=== PATIENT | female | born 1960 | race Caucasian/White ===

== ENCOUNTER 2021-10-31 01:38 | Inpatient (IN) | payer BC ==
[2021-10-31] MEDS ORDERED: IPRATROPIUM 0.5 MG/2.5 ML NEBU INHALATION STA (01:55)
[2021-10-31] MEDS ORDERED: AZITHROMYCIN 500 MG in SODIUM CHLORIDE 0.9% 250 ML IVPB STA (01:55)
[2021-10-31] MEDS ORDERED: ALBUTEROL NEBULIZED 2.5 MG/3 ML INHALATION STA (01:55)
[2021-10-31] MEDS ORDERED: methylPREDNISolone SOD SUCCI 125 MG/2 ML VIAL IV STA (01:55)
[2021-10-31] MEDS ORDERED: SODIUM CHLORIDE 0.9% 1,000 ML IV STA ×2 (01:55)
[2021-10-31] MEDS ORDERED: MORPHINE SULFATE 2 MG/ML SYRINGE IVP STA (01:56)
[2021-10-31] MEDS ORDERED: KETOROLAC 15 MG/ML 1 ML VIAL IVP STA (01:56)
--- NOTE | 2021-10-31 01:56 | ED ---
SOB HPI - General Chief Complaint: Upper Respiratory Infection Stated Complaint: SOB, right side pain Time Seen by Provider: 10/31/21 01:55 Source: patient, RN notes reviewed, old records reviewed Mode of arrival: ambulatory - History of Present Illness Initial Comments: This is a 61-year-old female to the emergency department for evaluation of shortness of breath. Patient has show significant shortness of breath cough and congestion positive increasing cough and generalized chest pain. Patient denies fever. Patient was seen in outpatient setting earlier today tested negative for coronavirus. No travel history no known sick contacts MD Complaint: shortness of breath -: hour(s) Severity: severe Severity scale (1-10): 10 Quality: aching Consistency: constant Improves With: nothing Worsens With: exertion, movement Known History Of: COPD, asthma - Related Data Home Medications Medication Instructions Recorded Confirmed Albuterol Sulfate [Proair Hfa] 2 puff INHALATION Q6HR PRN 09/20/13 09/20/13 Fexofenadine/Pseudoephedrine 1 each PO BID 09/20/13 09/26/13 [Shannan-D 12 Hour Tablet] Tudorza 1 puff INHALATION BID 09/20/13 09/26/13 Previous Rx's Medication Instructions Recorded Acetaminophen-Codeine 300-30mg 2 each PO Q6HR PRN #20 tab 09/27/13 [Tylenol w/codeine #3] Ibuprofen [Motrin] 600 mg PO Q6HR PRN #30 tab 09/27/13 Sennosides-Docusate Sodium 2 each PO BID PRN #60 tab 09/27/13 [Senokot-S] Allergies Allergy/AdvReac Type Severity Reaction Status Date / Time Penicillins Allergy Nausea & Verified 09/26/13 14:45 Vomiting & Diarrhea Review of Systems ROS Statement: Those systems with pertinent positive or pertinent negative responses have been documented in the HPI. ROS Other: All systems not noted in ROS Statement are negative. 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 Absent: scleral icterus, conjunctival injection, periorbital swelling ENT exam: Present: normal exam, mucous membranes moist Neck exam: Present: normal inspection. Absent: tenderness, meningismus, lymphadenopathy Respiratory exam: Present: respiratory distress, accessory muscle use, decreased breath sounds, prolonged expiratory. Absent: wheezes, rales, rhonchi, stridor Cardiovascular Exam: Present: regular rate, normal rhythm, tachycardia, normal heart sounds. Absent: systolic murmur, diastolic murmur, rubs, gallop, clicks GI/Abdominal exam: Present: soft, normal bowel sounds. Absent: distended, tenderness, guarding, rebound, rigid Extremities exam: Present: normal inspection, full ROM, normal capillary refill. Absent: tenderness, pedal edema, joint swelling, calf tenderness Back exam: Present: normal inspection Neurological exam: Present: alert, oriented X3, CN II-XII intact Psychiatric exam: Present: normal affect, normal mood Skin exam: Present: warm, dry, intact, normal color. Absent: rash Course Vital Signs 10/31/21 10/31/21 10/31/21 01:41 02:43 02:57 Temperature 99.7 F H Pulse Rate 111 H 111 H 109 H Respiratory 20 Rate Blood Pressure 134/74 O2 Sat by Pulse 92 L Oximetry - Reevaluation(s) Reevaluation #1: 10/31/21 02:45 Medical record is reviewed Reevaluation #2: 10/31/21 02:45 Patient is showing no real clinical improvement here Reevaluation #3: 10/31/21 03:20 Patient not really improving here in the ER still breathing at a high rate Reevaluation #4: 10/31/21 03:20 Patient informed of results and questions answered - Consultations Consultation #1: Spoke with Dr. Sparks is going to admit this patient Medical Decision Making - Medical Decision Making 61-year-old female in significant respiratory distress. Patient with hypoxia help with supplemental O2. Not on home O2. Patient has history of asthma COPD will admit for pneumonia with COPD exacerbation - Lab Data Result diagrams: 10/31/21 02:15 07/01/22 02:15 Lab Results 10/31/21 10/31/21 10/31/21 Range/Units 02:15 02:15 02:15 WBC 18.1 H (3.8-10.6) k/uL RBC 4.22 (3.80-5.40) m/uL Hgb 13.0 (11.4-16.0) gm/dL Hct 38.8 (34.0-46.0) % MCV 91.8 (80.0-100.0) fL MCH 30.7 (25.0-35.0) pg MCHC 33.4 (31.0-37.0) g/dL RDW 12.9 (11.5-15.5) % Plt Count 195 (150-450) k/uL MPV 6.7 Neutrophils % 91 % Lymphocytes % 5 % Monocytes % 3 % Eosinophils % 0 % Basophils % 0 % Neutrophils # 16.4 H (1.3-7.7) k/uL Lymphocytes # 0.8 L (1.0-4.8) k/uL Monocytes # 0.6 (0-1.0) k/uL Eosinophils # 0.1 (0-0.7) k/uL Basophils # 0.1 (0-0.2) k/uL PT 9.8 (9.0-12.0) sec INR 0.9 (<1.2) APTT 23.3 (22.0-30.0) sec Sodium 127 L (137-145) mmol/L Potassium 4.3 (3.5-5.1) mmol/L Chloride 96 L (98-107) mmol/L Carbon Dioxide 22 (22-30) mmol/L Anion Gap 9 mmol/L BUN 11 (7-17) mg/dL Creatinine 0.69 (0.52-1.04) mg/dL Est GFR (CKD-EPI)AfAm >90 (>60 ml/min/1.73 sqM) Est GFR (CKD-EPI)NonAf >90 (>60 ml/min/1.73 sqM) Glucose 139 H (74-99) mg/dL Calcium 8.6 (8.4-10.2) mg/dL Magnesium 2.0 (1.6-2.3) mg/dL Total Bilirubin 0.8 (0.2-1.3) mg/dL AST 25 (14-36) U/L ALT 16 (4-34) U/L Alkaline Phosphatase 99 (38-126) U/L Troponin I (0.000-0.034) ng/mL NT-Pro-B Natriuret Pep pg/mL Total Protein 6.7 (6.3-8.2) g/dL Albumin 3.9 (3.5-5.0) g/dL 10/31/21 10/31/21 Range/Units 02:15 02:15 WBC (3.8-10.6) k/uL RBC (3.80-5.40) m/uL Hgb (11.4-16.0) gm/dL Hct (34.0-46.0) % MCV (80.0-100.0) fL MCH (25.0-35.0) pg MCHC (31.0-37.0) g/dL RDW (11.5-15.5) % Plt Count (150-450) k/uL MPV Neutrophils % % Lymphocytes % % Monocytes % % Eosinophils % % Basophils % % Neutrophils # (1.3-7.7) k/uL Lymphocytes # (1.0-4.8) k/uL Monocytes # (0-1.0) k/uL Eosinophils # (0-0.7) k/uL Basophils # (0-0.2) k/uL PT (9.0-12.0) sec INR (<1.2) APTT (22.0-30.0) sec Sodium (137-145) mmol/L Potassium (3.5-5.1) mmol/L Chloride (98-107) mmol/L Carbon Dioxide (22-30) mmol/L Anion Gap mmol/L BUN (7-17) mg/dL Creatinine (0.52-1.04) mg/dL Est GFR (CKD-EPI)AfAm (>60 ml/min/1.73 sqM) Est GFR (CKD-EPI)NonAf (>60 ml/min/1.73 sqM) Glucose (74-99) mg/dL Calcium (8.4-10.2) mg/dL Magnesium (1.6-2.3) mg/dL Total Bilirubin (0.2-1.3) mg/dL AST (14-36) U/L ALT (4-34) U/L Alkaline Phosphatase (38-126) U/L Troponin I <0.012 (0.000-0.034) ng/mL NT-Pro-B Natriuret Pep 146 pg/mL Total Protein (6.3-8.2) g/dL Albumin (3.5-5.0) g/dL - Radiology Data Radiology results: report reviewed (Chest x-rays positive for pneumonia), image reviewed Critical Care Time Critical Care Time: Yes Total Critical Care Time: 31 Disposition Clinical Impression: Asthma exacerbation, COPD (chronic obstructive pulmonary disease), Hypoxia, Community acquired pneumonia Disposition: ADMITTED IP TO THIS [facility] Condition: Serious Is patient prescribed a controlled substance at d/c from ED?: No Referrals: Wilman Sparks DO [Primary Care Provider] - 1-2 days
[2021-10-31 02:38] LABS: Basophils # (A) 0.1 k/uL (0-0.2); Basophils % (A) 0 %; Eosinophils # (A) 0.1 k/uL (0-0.7); Eosinophils % (A) 0 %; HCT 38.8 % (34.0-46.0); Lymphocytes # (A) 0.8 k/uL (1.0-4.8); Lymphocytes % (A) 5 %; MCH 30.7 pg (25.0-35.0); MCHC 33.4 g/dL (31.0-37.0); MCV 91.8 fL (80.0-100.0); Mean Platelet Volume 6.7; Monocytes # (A) 0.6 k/uL (0-1.0); Monocytes % (A) 3 %; Neutrophils # (A) 16.4 k/uL (1.3-7.7); Neutrophils % (A) 91 %; Platelet Count 195 k/uL (150-450); RBC 4.22 m/uL (3.80-5.40); RDW 12.9 % (11.5-15.5); WBC 18.1 k/uL (3.8-10.6)
--- NOTE | 2021-10-31 02:40 | XR ---
EXAM: XR Chest, 1 View CLINICAL HISTORY: ITS.REASON XR Reason: sob TECHNIQUE: Frontal view of the chest. COMPARISON: No relevant prior studies available. FINDINGS/IMPRESSION: Patchy opacities in the right midlung field and left lower lung field, concerning for infiltrates. Follow-up 2 view CXR recommended. Small effusion. No pneumothorax. Cardiomegaly.
[2021-10-31 02:53] LABS: ALT 16 U/L (4-34); AST 25 U/L (14-36); African American GFR (CKD) >90 (>60 ml/min/1.73 sqM); Albumin 3.9 g/dL (3.5-5.0); Alkaline Phosphatase 99 U/L (38-126); Anion Gap 9 mmol/L; Blood Urea Nitrogen 11 mg/dL (7-17); Calcium 8.6 mg/dL (8.4-10.2); Carbon Dioxide 22 mmol/L (22-30); Chloride 96 mmol/L (98-107); Glucose 139 mg/dL (74-99); Non-African American GFR(CKD) >90 (>60 ml/min/1.73 sqM); Potassium 4.3 mmol/L (3.5-5.1); Sodium 127 mmol/L (137-145); Total Bilirubin 0.8 mg/dL (0.2-1.3); Total Protein 6.7 g/dL (6.3-8.2)
[2021-10-31 03:08] LABS: INR 0.9 (<1.2); Partial Thromboplastin Time 23.3 sec (22.0-30.0); Prothrombin Time 9.8 sec (9.0-12.0)
[2021-10-31] MEDS ORDERED: PNEUMONIA PROTOCOL UTILIZED 1 EACH MISC PO PRN (03:15)
[2021-10-31] MEDS: IPRATROPIUM-ALBUTEROL 3 ML NEB INHALATION PRN ×2 (07:00→10:55)
[2021-10-31] MEDS: methylPREDNISolone SOD SUCCI 40 MG/ML 1 ML VIAL IV SCH ×2 (12:21→18:07)
--- NOTE | 2021-10-31 13:21 | P.CNPUL ---
History of Present Illness Consult date: 10/31/21 Reason for consult: dyspnea, asthma, pneumonia History of present illness: This is a 61-year-old female patient, an occasional smoker, who comes into the hospital because of worsening shortness of breath and cough and congestion is been going on for the past 1-2 weeks. The patient has been having increased cough and congestion and generalized weakness and fatigue and tiredness. Denies having any fever. She was seen on outpatient basis and she tested negative for COVID 19. No travel history. No sick contacts. The patient has been vacc inated for, 19. During this current admission, the patient a chest x-ray that showed multilobar pneumonia. The chest x-ray showed patchy opacities in the right upper lobe and midlung. The left lower lobe consistent with pneumonia. The blood work showed a white cell count of 18.4 with hemoglobin 13.0 and a platelet count of 195. Normal coagulation profile. Sodium level was 127 with a potassium level of 4.3 BUN is 11 creatinine of 0.9. COVID 19 testing was also negative. Troponin was also negative at 0.01. Total protein was 6.7, albumin was 3.9. The patient was admitted to the hospital and started on a combination of Rocephin and Zithromax. Note that the patient has history of bronchial asthma and the patient has been maintained on tudorza inhaler on outpatient basis. She is also on Singulair 10 mg by mouth daily she has a nebulizer which she got DuoNeb nebulized treatment [id number]. She also uses pro-air rescue inhaler on an as-needed basis. Review of Systems General appearance: alert, in no apparent distress, anxious, in distress Head exam: Present: atraumatic, normocephalic, normal inspection Eye exam: Present: normal appearance, PERRL, EOMI. Absent: scleral icterus, conjunctival injection, periorbital swelling ENT exam: Present: normal exam, mucous membranes moist Neck exam: Present: normal inspection. Absent: tenderness, meningismus, lymphadenopathy Respiratory exam: Present: respiratory distress, accessory muscle use, decreased breath sounds, prolonged expiratory. Absent: wheezes, rales, rhonchi, stridor Cardiovascular Exam: Present: regular rate, normal rhythm, tachycardia, normal heart sounds. Absent: systolic murmur, diastolic murmur, rubs, gallop, clicks GI/Abdominal exam: Present: soft, normal bowel sounds. Absent: distended, tenderness, guarding, rebound, rigid Extremities exam: Present: normal inspection, full ROM, normal capillary refill. Absent: tenderness, pedal edema, joint swelling, calf tenderness Back exam: Present: normal inspection Neurological exam: Present: alert, oriented X3, CN II-XII intact Psychiatric exam: Present: normal affect, normal mood Skin exam: Present: warm, dry, intact, normal color. Absent: rash Constitutional: Reports fatigue, Reports poor appetite, Reports weakness Eyes: denies as per HPI, denies blurred vision, denies bulging eye, denies decreased vision, denies diplopia, denies discharge, denies dry eye, denies irritation, denies itching, denies pain, denies photophobia, denies loss of peripheral vision, denies loss of vision, denies tunnel vision/blind spots Ears: deny: decreased hearing, ear discharge, earache, tinnitus Ears, nose, mouth and throat: Reports as per HPI Breasts: absent: as per HPI, change in shape, gynecomastia, masses, nipple discharge, pain, skin changes, swelling Cardiovascular: Reports decreased exercise tolerance, Reports dyspnea on exertio n Respiratory: Reports cough, Reports cough with sputum, Reports dyspnea, Reports wheezing Gastrointestinal: Reports as per HPI Genitourinary: Reports as per HPI Menstruation: Reports as per HPI Musculoskeletal: Reports as per HPI Musculoskeletal: absent: ankle pain, ankle stiffness, ankle swelling Integumentary: Reports as per HPI Neurological: Reports as per HPI Psychiatric: Reports as per HPI Endocrine: Reports as per HPI Hematologic/Lymphatic: Reports as per HPI Allergic/Immunologic: Reports as per HPI Past Medical History Past Medical History: Asthma, Skin Disorder Additional Past Medical History / Comment(s): Asthma ( Tudorza and Proair ) , PSORIASIS,RECTAL PROLAPSE History of Any Multi-Drug Resistant Organisms: None Reported Past Surgical History: Section, Tubal Ligation Past Anesthesia/Blood Transfusion Reactions: No Reported Reaction Past Psychological History: No Psychological Hx Reported Smoking Status: Current every day smoker Past Alcohol Use History: Occasional Past Drug Use History: None Reported Medications and Allergies Home Medications Medication Instructions Recorded Confirmed Type Albuterol Sulfate [Proair Hfa] 2 puff INHALATION RT-Q6H PRN 09/20/13 10/31/21 History Aclidinium [place] [Tudorza 1 puff INHALATION RT-BID 10/31/21 10/31/21 History Pressair] Ipratropium-Albuterol Nebulize 3 ml INHALATION RT-QID PRN 10/31/21 10/31/21 History [Duoneb 0.5 mg-3 mg/3 ml Soln] Montelukast [Singulair] 10 mg PO HS 10/31/21 10/31/21 History Allergies Allergy/AdvReac Type Severity Reaction Status Date / Time Penicillins AdvReac Nausea & Verified 10/31/21 07:28 Vomiting & Diarrhea Physical Exam Vitals: Vital Signs Temp Pulse Pulse Resp BP BP Pulse Ox 10/31/21 11:03 80 18 10/31/21 10:55 78 18 10/31/21 08:00 97.7 F 91 16 108/70 96 10/31/21 07:09 89 18 10/31/21 07:00 88 18 10/31/21 05:19 99.2 F 98 22 132/84 10/31/21 03:25 124 H 10/31/21 03:10 118 H 10/31/21 02:57 109 H 10/31/21 02:43 111 H 10/31/21 01:41 99.7 F H 111 H 20 134/74 92 L Intake and Output 10/30/21 10/31/21 10/31/21 22:59 06:59 14:59 Other: Weight 68.039 kg 68.039 kg Gen. appearance, comfortable no acute distress, the patient is currently on 2 L of O2 nasal cannula Head exam was generally normal. There was no scleral icterus or corneal arcus. Mucous membranes were moist. Neck was supple and without jugular venous distension, thyromegaly, or carotid bruits. Carotids were easily palpable bilaterally. There was no adenopathy. Lungs sounds are diminished and the patient has scattered rhonchi and crackles heard throughout the lung otero bilaterally Cardiac exam revealed the PMI to be normally situated and sized. The rhythm was regular and no extrasystoles were noted during several minutes of auscultation. The first and second heart sounds were normal and physiologic splitting of the second heart sound was noted. There were no murmurs, rubs, clicks, or gallops. Abdominal exam revealed normal bowel sounds. The abdomen was soft, non-tender, and without masses, organomegaly, or appreciable enlargement of the abdominal ao rta. Examination of the extremities revealed easily palpable radial, femoral and pedal pulses. There was no cyanosis, clubbing or edema. Examination of the skin revealed no evidence of significant rashes, suspicious appearing nevi or other concerning lesions. Neurologically, the patient is awake and alert and the patient does not have any focal neurological deficit. Cranial nerves are essentially intact. Results - Laboratory Findings CBC and BMP: 10/31/21 02:15 10/31/21 02:15 PT/INR, D-dimer PT 9.8 sec (9.0-12.0) 10/31/21 02:15 INR 0.9 (<1.2) 10/31/21 02:15 Abnormal lab findings: Abnormal Labs 10/31/21 10/31/21 02:15 02:15 WBC 18.1 H Neutrophils # 16.4 H Lymphocytes # 0.8 L Sodium 127 L Chloride 96 L Glucose 139 H - Diagnostic Findings Chest x-ray: image reviewed Assessment and Plan Plan: Current acquired multilobar pneumonia, bilateral, rule out bacterial pneumonia. Acute hypoxic respiratory failure secondary to above Acute asthma exacerbation secondary to above History of smoking Hyponatremia, consider pneumonia due to SIADH Plan Check a Legionella urine antigen Check pro calcitonin level Agree on the current antibiotic coverage including a combination of Rocephin and Zithromax IV Solu-Medrol 40 mg every 6 hours Heparin subcu for DVT prophylaxis Obtain sputum Gram stain and cultures Obtain blood cultures Repeat chest x-ray with next 24 hours Monitor sodium level We'll continue to follow
[2021-10-31] MEDS: PANTOPRAZOLE 40 MG TABLET PO SCH (14:04)
[2021-10-31] MEDS: HEPARIN SODIUM,PORCINE/PF 5,000 UNIT/0.5 ML SYRINGE SQ SCH ×2 (14:08→20:44)
[2021-10-31] MEDS: IPRATROPIUM-ALBUTEROL 3 ML NEB INHALATION SCH ×2 (16:15→20:34)
--- NOTE | 2021-10-31 18:47 | HP ---
HISTORY AND PHYSICAL DATE OF SERVICE: 10/31/2021 CHIEF COMPLAINT: Shortness of breath, cough and pneumonia. HISTORY OF PRESENT ILLNESS: This 61-year-old woman with a past medical history of multiple medical problems, asthma, history of section, was complaining of cough and sputum for the past several weeks. Because of lack of improvement, patient came to [facility]. Patient found to have right-sided pneumonia, admitted for further evaluation and treatment. There is no history of fever, rigors or chills. PAST MEDICAL HISTORY: History of asthma. MEDICATIONS: Reviewed and include: Singular. Dose and the rest of medications reviewed. ALLERGIES: PENICILLIN. FAMILY HISTORY: No history of heart disease or strokes in the family. SOCIAL HISTORY: Continued smoking. REVIEW OF SYSTEMS: Fourteen point review of systems was negative except as mentioned earlier. PHYSICAL EXAMINATION: Pulse is 78, blood pressure 108/77, respirations 16. HEENT: Conjunctivae normal. NECK: No JVD. CARDIOVASCULAR: S1, S2 muffled. RESPIRATIONS: Breath sounds diminished in the bases. A few scattered rhonchi and crackles. Expiratory wheezing. ABDOMEN: Soft, nontender. NERVOUS SYSTEM: No focal deficits. LABS: WBC 18.1, sodium 127. Chest x-ray reviewed personally. ASSESSMENT: 1. Right middle lung pneumonia. 2. Asthma, acute exacerbation. 3. History of psoriasis. RECOMMENDATIONS AND DISCUSSION: This 61-year-old woman who presented with multiple complex medical issues, we will monitor the patient closely, continue the current medications. We will optimize the bronchodilator treatment, empiric antibiotics, pulmonary consultation. Guarded prognosis because of multiple complex medical issues. Further recommendations to follow. MMODL / IJN: [id number] /
[2021-10-31] MEDS: SYMBICORT 160-4.5 MCG INHALER INHALATION SCH (20:34)
[2021-10-31] MEDS: MONTELUKAST 10 MG TAB PO SCH (20:43)
[2021-11-01] MEDS: methylPREDNISolone SOD SUCCI 40 MG/ML 1 ML VIAL IV SCH ×5 (00:04→23:45)
[2021-11-01] MEDS: PANTOPRAZOLE 40 MG TABLET PO SCH (06:48)
[2021-11-01] MEDS: HEPARIN SODIUM,PORCINE/PF 5,000 UNIT/0.5 ML SYRINGE SQ SCH ×2 (06:49→20:36)
[2021-11-01] MEDS: IPRATROPIUM-ALBUTEROL 3 ML NEB INHALATION SCH ×4 (07:50→20:44)
[2021-11-01] MEDS: SYMBICORT 160-4.5 MCG INHALER INHALATION SCH ×2 (07:51→20:44)
--- NOTE | 2021-11-01 07:56 | XR ---
EXAMINATION TYPE: XR chest 2V DATE OF EXAM: 11/01/2021 7:47 AM COMPARISON: Chest radiographs from 10/31/2021 TECHNIQUE: XR chest 2V Frontal and lateral views of the chest. CLINICAL INDICATION:Female, 61 years old with history of pneumonia; FINDINGS: Lungs/Pleura: Right midlung streaky atelectasis unchanged from one day prior. There is improved aerat ion within the left lung base. Blunting of right costophrenic angles. There is no evidence pneumothor ax. Pulmonary vascularity: Unremarkable. Heart/mediastinum: Cardiomediastinal silhouette is unremarkable. Musculoskeletal: No acute osseous pathology. IMPRESSION: 1. Improved aeration of the left lung base suggesting prior atelectasis. Persistent right midlung ai rspace opacities which could represent pneumonia. 2. Suspected small pleural effusions. 3. COPD changes.
[2021-11-01 09:00] LABS: Basophils # (A) 0.07 X 10*3/uL (0.00-0.10); Basophils % (A) 0.3 %; Eosinophils # (A) 0.06 X 10*3/uL (0.04-0.35); Eosinophils % (A) 0.3 %; HCT 35.1 % (37.2-46.3); HGB 11.9 g/dL (12.0-15.0); Immature Grans, Automated 0.8 %; Lymphocytes # (A) 1.03 X 10*3/uL (0.90-5.00); Lymphocytes % (A) 5.1 %; MCH 29.8 pg (27.0-32.0); MCHC 33.9 g/dL (32.0-37.0); MCV 87.8 fL (80.0-97.0); Mean Platelet Volume 9.5 fL (9.5-12.2); Monocytes % (A) 2.5 %; NRBC Per 100 WBC 0 /100 WBCS (0.0-0.0); Neutrophils # (A) 18.21 X 10*3/uL (1.80-7.70); Platelet Count 211 X 10*3/uL (140-440); WBC 20.04 X 10*3/uL (4.50-10.00)
[2021-11-01 11:01] LABS: African American GFR (CKD) 114.8 (60.0-200.0); Anion Gap 15.2 mmol/L (10.00-18.00); BUN/Creat Ratio 18.5 Ratio (12.00-20.00); Blood Urea Nitrogen 11.1 mg/dL (9.0-27.0); Calcium 8.9 mg/dL (8.7-10.3); Carbon Dioxide 20.8 mmol/L (20.0-27.5); Non-African American GFR(CKD) 99.1 (60.0-200.0); Potassium 4.2 mmol/L (3.5-5.5)
--- NOTE | 2021-11-01 11:33 | P.PN ---
Subjective Progress Note Date: 11/01/21 This is a 61-year-old female patient, an occasional smoker, who comes into the hospital because of worsening shortness of breath and cough and congestion is been going on for the past 1-2 weeks. The patient has been having increased cough and congestion and generalized weakness and fatigue and tiredness. Denies having any fever. She was seen on outpatient basis and she tested negative for COVID 19. No travel history. No sick contacts. The patient has been vaccinated for, 19. During this current admission, the patient a chest x-ray that showed multilobar pneumonia. The chest x-ray showed patchy opacities in the right upper lobe and midlung. The left lower lobe consistent with pneumonia. The blood work showed a white cell count of 18.4 with hemoglobin 13.0 and a platelet count of 195. Normal coagulation profile. Sodium level was 127 with a potassium level of 4.3 BUN is 11 creatinine of 0.9. COVID 19 testing was also negative. Troponin was also negative at 0.01. Total protein was 6.7, albumin was 3.9. The patient was admitted to the hospital and started on a combination of Rocephin and Zithromax. Note that the patient has history of bronchial asthma and the patient has been maintained on tudorza inhaler on outpatient basis. She is also on Singulair 10 mg by mouth daily she has a nebulizer which she got DuoNeb nebulized treatment [id number]. She also uses pro-air rescue inhaler on an as-needed basis. 11/01/2021, the patient is feeling well. The patient is no specific complaints. The patient on IV antibiotics regarding the bilateral pneumonia and the infiltrates in the left lung base is improving and the right upper lobe consol idation is also improving. Pro-calcitonin level was elevated at 1.3. The patient remains on a, this Rocephin and Zithromax. Blood cultures negative for now. Meanwhile, the repeat blood work shows a white cell count 20.0 with a hemoglobin of 11.9 and a sodium level of 134. BUN is at 11 with a creatinine of 0.6. Legionella urine antigen was negative. Objective - Vital Signs Vital signs: Vital Signs Temp 97.5 F L 11/01/21 06:46 Pulse 80 11/01/21 08:04 Resp 16 11/01/21 06:46 BP 131/79 11/01/21 06:46 Pulse Ox 91 L 11/01/21 06:46 FiO2 Intake & Output 10/31/21 11/01/21 11/01/21 18:59 06:59 18:59 Intake Total 1080 Balance 1080 Weight 68.039 kg Intake: Oral 1080 Other: Voiding Method Toilet # Voids 2 - Exam Gen. appearance, comfortable no acute distress, the patient is currently on 2 L of O2 nasal cannula Head exam was generally normal. There was no scleral icterus or corneal arcus. Mucous membranes were moist. Neck was supple and without jugular venous distension, thyromegaly, or carotid bruits. Carotids were easily palpable bilaterally. There was no adenopathy. Lungs sounds are diminished and the patient has scattered rhonchi and crackles heard throughout the lung otero bilaterally Cardiac exam revealed the PMI to be normally situated and sized. The rhythm was regular and no extrasystoles were noted during several minutes of auscultation. The first and second heart sounds were normal and physiologic splitting of the second heart sound was noted. There were no murmurs, rubs, clicks, or gallops. Abdominal exam revealed normal bowel sounds. The abdomen was soft, non-tender, and without masses, organomegaly, or appreciable enlargement of the abdominal aorta. Examination of the extremities revealed easily palpable radial, femoral and pedal pulses. There was no cyanosis, clubbing or edema. Examination of the skin revealed no evidence of significant rashes, suspicious appearing nevi or other concerning lesions. Neurologically, the patient is awake and alert and the patient does not have any focal neurological deficit. Cranial nerves are essentially intact. - Labs CBC & Chem 7: 11/01/21 05:34 11/01/21 05:34 Labs: Abnormal Lab Results - Last 24 Hours (Table) 10/31/21 11/01/21 Range/Units 02:15 05:34 WBC 20.04 H (4.50-10.00) X 10*3/uL RBC 4.00 L (4.10-5.20) X 10*6/uL Hgb 11.9 L (12.0-15.0) g/dL Hct 35.1 L (37.2-46.3) % Immature Gran # 0.17 H (0.00-0.04) X 10*3/uL Neutrophils # 18.21 H (1.80-7.70) X 10*3/uL Procalcitonin 1.53 H (0.02-0.09) ng/mL Microbiology - Last 24 Hours (Table) 10/31/21 02:00 Blood Culture - Preliminary Blood No Growth after 24 hours 10/31/21 02:15 Blood Culture - Preliminary Blood No Growth after 24 hours Assessment and Plan Plan: Current acquired multilobar pneumonia, bilateral, rule out bacterial pneumonia. 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
[2021-11-01] MEDS: AZITHROMYCIN 500 MG in SODIUM CHLORIDE 0.9% 250 ML IVPB SCH (14:09)
[2021-11-01] MEDS: MONTELUKAST 10 MG TAB PO SCH (20:37)
[2021-11-02] MEDS: IPRATROPIUM-ALBUTEROL 3 ML NEB INHALATION PRN (00:16)
--- NOTE | 2021-11-02 04:06 | P.PN ---
Subjective Progress Note Date: 11/01/21 This is a 61 year old female who was recently admitted with increasing cough and congestion along with shortness of breath that had been progressively getting worse with no improvement. Patient is being closely monitored for bilateral pneumonia with pulmonary following. Chest xray ordered for today. Patient continued on breathing inhalational treatments, IV steroids, and IV abx. Patient currently maintained on 2 liters of 02 via NC and does not normally wear 02 in the outpatient setting. Recommend weaning as tolerated. Encouraged increased activity and will recommend incentive spirometer. Patient is afebrile and denies worsening shortness of breath or chest pain. Shortness of breath with exertion. Covid, rsv, influenza, and legionella are negative. Sputum culture collected and pending. Review of systems: Constitutional: No reports of fatigue, fever, or chills Cardiovascular: No reports of chest pain or palpitations Respiratory: reports of shortness of breath and cough GI: reports of nausea, no reports of of vomiting : No reports of dysuria or retention Neurovascular: no reports of generalized weakness All medications have been reviewed Active Medications Albuterol/Ipratropium (Ipratropium-Albuterol 3 Ml Neb) 3 ml INHALATION RT-Q4H PRN PRN Reason: shortness of breath Last Admin: 11/02/21 00:16 Dose: 3 ml Albuterol/Ipratropium (Ipratropium-Albuterol 3 Ml Neb) 3 ml INHALATION RT-QID [facility] Last Admin: 11/01/21 20:44 Dose: Not Given Budesonide/Formoterol Fumarate (Symbicort 160-4.5 Mcg Inhaler) 2 puff INHALATION RT-BID [facility] Last Admin: 11/01/21 20:44 Dose: Not Given Heparin Sodium (Porcine) (Heparin Sodium,Porcine/Pf 5,000 Unit/0.5 Ml Syringe) 5,000 unit SQ Q12HR [facility] Last Admin: 11/01/21 20:36 Dose: Not Given Ceftriaxone Sodium 2 gm/ (Sodium Chloride) 50 mls @ 100 mls/hr IVPB Q24H [facility]; Protocol Stop: 11/04/21 03:29 Last Admin: 11/02/21 03:52 Dose: 100 mls/hr Azithromycin 500 mg/ Sodium (Chloride) 250 mls @ 250 mls/hr IVPB DAILY [facility]; Protocol Stop: 11/02/21 09:59 Last Admin: 11/01/21 14:09 Dose: 250 mls/hr Methylprednisolone Sodium Succinate (Methylprednisolone Sod Succi 40 Mg/Ml 1 Ml Vial) 40 mg IV Q6HR [facility] Last Admin: 11/01/21 23:45 Dose: 40 mg Miscellaneous Information (Pneumonia Protocol Utilized [facility]) 1 each PO ONCE PRN PRN Reason: Per Protocol Montelukast Sodium (Montelukast 10 Mg Tab) 10 mg PO HS [facility] Last Admin: 11/01/21 20:37 Dose: 10 mg Pantoprazole Sodium (Pantoprazole 40 Mg Tablet) 40 mg PO AC-BRKFST [facility] Last Admin: 11/01/21 06:48 Dose: 40 mg PHYSICAL EXAMINATION: GENERAL: The patient is alert and oriented x4, Well developed, well nourished. HEENT: PERRLA. EOMI. no scleral icterus. No conjunctival pallor. Normocephalic, atraumatic. No pharyngeal erythema. No thyromegaly. CARDIOVASCULAR: S1 and S2 muffled PULMONARY: diminished breath sounds bilaterally with course rhonchi and some wheezing noted. ABDOMEN: soft. nontender on exam. non-distended, normoactive bowel sounds. No palpable organomegaly. MUSCULOSKELETAL: No joint swelling or deformity. EXTREMITIES: No cyanosis, clubbing, or pedal edema. NEUROLOGICAL: Gross neurological examination did not reveal any focal deficits. SKIN: No rashes. Assessment: Right middle lung pneumonia with failure of outpatient treatment Acute hypoxic respiratory failure secondary to above Hyponatremia Asthma, acute exacerbation history of psoriasis Multiple medical issues GI prophylaxis DVT prophylaxis Plan: Recommend to continue with current medications and management with pulmonary following. Patient is continued on breathing inhalational treatment and IV steroids and also IV antibiotics and showing some minimal improvement. Chest xray today shows some improvement in aeration on the left with suspect small pleural effusions and COPD. Encouraged increased activity as tolerated. Patient is continued on 2 L via NC and will titrate FI02 as tolerated. IV steroids decreased slightly. Will follow up with am labs and continue to monitor closely. Patient does not wear 02 in the outpatient setting. Encouraged increase activity as tolerated. Recommend continue with incentive spirometer use at least 10 times every hour while awake. Due to multiple medical issues, prognosis is guarded. AM labs ordered. The impression and plan of care has been dictated by Kinza Wallace, nurse practitioner as directed. MD Garland I have performed a history and examination and MDM of this patient, discussed the same with the dictator, and agree with the dictator's assessment and plan as written ,documented as a scribe. Based on total visit time, I have performed more than 50% of the visit. Any additional findings or plans will be noted. Objective - Vital Signs Vital signs: Vital Signs Temp 97.5 F L 11/01/21 06:46 Pulse 80 11/01/21 08:04 Resp 16 11/01/21 06:46 BP 131/79 11/01/21 06:46 Pulse Ox 91 L 11/01/21 06:46 FiO2 Intake & Output 10/31/21 11/01/21 11/01/21 18:59 06:59 18:59 Intake Total 1080 Balance 1080 Weight 68.039 kg Intake: Oral 1080 Other: Voiding Method Toilet # Voids 2 - Labs CBC & Chem 7: 11/01/21 05:34 11/01/21 05:34 Labs: Abnormal Lab Results - Last 24 Hours (Table) 10/31/21 11/01/21 Range/Units 02:15 05:34 WBC 20.04 H (4.50-10.00) X 10*3/uL RBC 4.00 L (4.10-5.20) X 10*6/uL Hgb 11.9 L (12.0-15.0) g/dL Hct 35.1 L (37.2-46.3) % Immature Gran # 0.17 H (0.00-0.04) X 10*3/uL Neutrophils # 18.21 H (1.80-7.70) X 10*3/uL Procalcitonin 1.53 H (0.02-0.09) ng/mL Microbiology - Last 24 Hours (Table) 10/31/21 02:00 Blood Culture - Preliminary Blood No Growth after 24 hours 10/31/21 02:15 Blood Culture - Preliminary Blood No Growth after 24 hours
[2021-11-02] MEDS: methylPREDNISolone SOD SUCCI 40 MG/ML 1 ML VIAL IV SCH (05:15)
[2021-11-02] MEDS: PANTOPRAZOLE 40 MG TABLET PO SCH (07:06)
[2021-11-02] MEDS: AZITHROMYCIN 500 MG in SODIUM CHLORIDE 0.9% 250 ML IVPB SCH (07:06)
[2021-11-02] MEDS: HEPARIN SODIUM,PORCINE/PF 5,000 UNIT/0.5 ML SYRINGE SQ SCH ×2 (07:06→20:29)
[2021-11-02 07:38] LABS: Basophils # (A) 0.4 k/uL (0-0.2); Basophils % (A) 2 %; Eosinophils # (A) 0.1 k/uL (0-0.7); Eosinophils % (A) 1 %; HCT 37.3 % (34.0-46.0); HGB 12.5 gm/dL (11.4-16.0); Lymphocytes # (A) 0.7 k/uL (1.0-4.8); Lymphocytes % (A) 4 %; MCH 30.1 pg (25.0-35.0); MCHC 33.4 g/dL (31.0-37.0); MCV 90.1 fL (80.0-100.0); Mean Platelet Volume 6.6; Monocytes # (A) 0.6 k/uL (0-1.0); Monocytes % (A) 3 %; Neutrophils # (A) 17.4 k/uL (1.3-7.7); Neutrophils % (A) 90 %; Platelet Count 300 k/uL (150-450); RBC 4.14 m/uL (3.80-5.40); RDW 12.7 % (11.5-15.5); WBC 19.4 k/uL (3.8-10.6)
[2021-11-02 07:46] LABS: African American GFR (CKD) >90 (>60 ml/min/1.73 sqM); Anion Gap 7 mmol/L; Blood Urea Nitrogen 17 mg/dL (7-17); Carbon Dioxide 29 mmol/L (22-30); Chloride 98 mmol/L (98-107); Glucose 153 mg/dL (74-99); Non-African American GFR(CKD) >90 (>60 ml/min/1.73 sqM); Potassium 4.7 mmol/L (3.5-5.1); Sodium 134 mmol/L (137-145)
[2021-11-02] MEDS: IPRATROPIUM-ALBUTEROL 3 ML NEB INHALATION SCH ×4 (07:47→19:53)
[2021-11-02] MEDS: SYMBICORT 160-4.5 MCG INHALER INHALATION SCH ×2 (07:47→19:53)
[2021-11-02] MEDS: AZITHROMYCIN 500 MG TAB PO SCH (11:09)
--- NOTE | 2021-11-02 11:43 | P.PN ---
Subjective Progress Note Date: 11/02/21 This is a 61-year-old female patient, an occasional smoker, who comes into the hospital because of worsening shortness of breath and cough and congestion is been going on for the past 1-2 weeks. The patient has been having increased cough and congestion and generalized weakness and fatigue and tiredness. Denies having any fever. She was seen on outpatient basis and she tested negative for COVID 19. No travel history. No sick contacts. The patient has been vaccinated for, 19. During this current admission, the patient a chest x-ray that showed multilobar pneumonia. The chest x-ray showed patchy opacities in the right upper lobe and midlung. The left lower lobe consistent with pneumonia. The blood work showed a white cell count of 18.4 with hemoglobin 13.0 and a platelet count of 195. Normal coagulation profile. Sodium level was 127 with a potassium level of 4.3 BUN is 11 creatinine of 0.9. COVID 19 testing was also negative. Troponin was also negative at 0.01. Total protein was 6.7, albumin was 3.9. The patient was admitted to the hospital and started on a combination of Rocephin and Zithromax. Note that the patient has history of bronchial asthma and the patient has been maintained on tudorza inhaler on outpatient basis. She is also on Singulair 10 mg by mouth daily she has a nebulizer which she got DuoNeb nebulized treatment [id number]. She also uses pro-air rescue inhaler on an as-needed basis. 11/01/2021, the patient is feeling well. The patient is no specific complaints. The patient on IV antibiotics regarding the bilateral pneumonia and the infiltrates in the left lung base is improving and the right upper lobe consol idation is also improving. Pro-calcitonin level was elevated at 1.3. The patient remains on a, this Rocephin and Zithromax. Blood cultures negative for now. Meanwhile, the repeat blood work shows a white cell count 20.0 with a hemoglobin of 11.9 and a sodium level of 134. BUN is at 11 with a creatinine of 0.6. Legionella urine antigen was negative. 11/02/2021, the patient is doing well. No specific complaints. Pneumonia is being treated and the patient has a multilobar pneumonia. The patient remains on examination Rocephin and Zithromax. The patient remains on IV Solu-Medrol. Cultures are negative including Legionella urine antigen. Blood cultures also negative. Objective - Vital Signs Vital signs: Vital Signs Temp 97.8 F 11/02/21 07:39 Pulse 84 11/02/21 11:25 Resp 22 11/02/21 07:39 BP 173/90 11/02/21 07:39 Pulse Ox 93 L 11/02/21 07:52 FiO2 Intake & Output 11/01/21 11/02/21 11/02/21 18:59 06:59 18:59 Other: Voiding Method Toilet # Voids 3 3 - Exam Gen. appearance, comfortable no acute distress, the patient is currently on 2 L of O2 nasal cannula Head exam was generally normal. There was no scleral icterus or corneal arcus. Mucous membranes were moist. Neck was supple and without jugular venous distension, thyromegaly, or carotid bruits. Carotids were easily palpable bilaterally. There was no adenopathy. Lungs sounds are diminished and the patient has scattered rhonchi and crackles heard throughout the lung otero bilaterally Cardiac exam revealed the PMI to be normally situated and sized. The rhythm was regular and no extrasystoles were noted during several minutes of auscultation. The first and second heart sounds were normal and physiologic splitting of the second heart sound was noted. There were no murmurs, rubs, clicks, or gallops. Abdominal exam revealed normal bowel sounds. The abdomen was soft, non-tender, and without masses, organomegaly, or appreciable enlargement of the abdominal aorta. Examination of the extremities revealed easily palpable radial, femoral and pedal pulses. There was no cyanosis, clubbing or edema. Examination of the skin revealed no evidence of significant rashes, suspicious appearing nevi or other concerning lesions. Neurologically, the patient is awake and alert and the patient does not have any focal neurological deficit. Cranial nerves are essentially intact. - Labs CBC & Chem 7: 11/02/21 07:25 11/02/21 07:25 Labs: Abnormal Lab Results - Last 24 Hours (Table) 11/02/21 11/02/21 Range/Units 07: 07:25 WBC 19.4 H (3.8-10.6) k/uL Neutrophils # 17.4 H (1.3-7.7) k/uL Lymphocytes # 0.7 L (1.0-4.8) k/uL Basophils # 0.4 H (0-0.2) k/uL Sodium 134 L (137-145) mmol/L Glucose 153 H (74-99) mg/dL Microbiology - Last 24 Hours (Table) 11/01/21 08:10 Gram Stain - Preliminary Sputum Sputum Culture - Preliminary 10/31/21 02:00 Blood Culture - Preliminary Blood No Growth after 48 hours 10/31/21 02:15 Blood Culture - Preliminary Blood No Growth after 48 hours Assessment and Plan Plan: Current acquired multilobar pneumonia, bilateral, rule out bacterial pneumonia. Acute hypoxic respiratory failure secondary to above Acute asthma exacerbation secondary to above History of smoking Hyponatremia, consider pneumonia due to SIADH Plan Clinically the same as yesterday. Chest x-ray improving improving from yesterday. We'll repeat another chest x- ray tomorrow Continue same antibiotic coverage and this will include Rocephin and Zithromax Check a Legionella urine antigen and the level was negative Check pro calcitonin level and the level was elevated at 1.3 Continue Solu-Medrol 60 mg every 6 hours Heparin subcu for DVT prophylaxis Sodium level improved We'll continue to follow
[2021-11-02] MEDS: methylPREDNISolone SOD SUCCI 125 MG/2 ML VIAL IV SCH ×3 (13:00→23:12)
--- NOTE | 2021-11-02 18:34 | P.PN ---
Subjective Progress Note Date: 11/02/21 This is a 61 year old female who was recently admitted with increasing cough and congestion along with shortness of breath that had been progressively getting worse with no improvement. Patient is being closely monitored for bilateral pneumonia with pulmonary following. Chest xray ordered for today. Patient continued on breathing inhalational treatments, IV steroids, and IV abx. Patient currently maintained on 2 liters of 02 via NC and does not normally wear 02 in the outpatient setting. Recommend weaning as tolerated. Encouraged increased activity and will recommend incentive spirometer. Patient is afebrile and denies worsening shortness of breath or chest pain. Shortness of breath with exertion. Covid, rsv, influenza, and legionella are negative. Sputum culture collected and pending. 11/02/2021 Patient is seen today and reports to having worsening shortness of breath today and difficulty last night and requiring 4L via NC. Patient lungs sounds are diminished and chest is tight. Recommend increasing IV steroids to 60mg q 6 hours. Pulmonary following and will continue with breathing inhalational treatments. Follow up am chest xray ordered. Recommend keeping the room warm. Patient is afebrile and denies chest pain or palpitations. Review of systems: Constitutional: No reports of fatigue, fever, or chills Cardiovascular: No reports of chest pain or palpitations Respiratory: reports of worsening shortness of breath and continued cough GI: reports of nausea, no reports of of vomiting : No reports of dysuria or retention Neurovascular: no reports of generalized weakness All medications have been reviewed Active Medications Albuterol/Ipratropium (Ipratropium-Albuterol 3 Ml Neb) 3 ml INHALATION RT-Q4H PRN PRN Reason: shortness of breath Last Admin: 11/02/21 00:16 Dose: 3 ml Albuterol/Ipratropium (Ipratropium-Albuterol 3 Ml Neb) 3 ml INHALATION RT-QID [facility] Last Admin: 11/02/21 15:32 Dose: 3 ml Azithromycin (Azithromycin 500 Mg Tab) 500 mg PO DAILY [facility]; Protocol Stop: 11/04/21 09:01 Last Admin: 11/02/21 11:09 Dose: 500 mg Budesonide/Formoterol Fumarate (Symbicort 160-4.5 Mcg Inhaler) 2 puff INHALATION RT-BID [facility] Last Admin: 11/02/21 07:47 Dose: 2 puff Heparin Sodium (Porcine) (Heparin Sodium,Porcine/Pf 5,000 Unit/0.5 Ml Syringe) 5,000 unit SQ Q12HR [facility] Last Admin: 11/02/21 07:06 Dose: Not Given Ceftriaxone Sodium 2 gm/ (Sodium Chloride) 50 mls @ 100 mls/hr IVPB Q24H [facility]; Protocol Stop: 11/04/21 03:29 Last Admin: 11/02/21 03:52 Dose: 100 mls/hr Methylprednisolone Sodium Succinate (Methylprednisolone Sod Succi 125 Mg/2 Ml Vial) 60 mg IV Q6HR [facility] Last Admin: 11/02/21 17:04 Dose: 60 mg Miscellaneous Information (Pneumonia Protocol Utilized 1 Each Misc) 1 each PO ONCE PRN PRN Reason: Per Protocol Montelukast Sodium (Montelukast 10 Mg Tab) 10 mg PO HS [facility] Last Admin: 11/01/21 20:37 Dose: 10 mg Pantoprazole Sodium (Pantoprazole 40 Mg Tablet) 40 mg PO AC-BRKFST [facility] Last Admin: 11/02/21 07:06 Dose: 40 mg PHYSICAL EXAMINATION: GENERAL: The patient is alert and oriented x4, Well developed, well nourished. HEENT: PERRLA. EOMI. no scleral icterus. No conjunctival pallor. Normocephalic, atraumatic. No pharyngeal erythema. No thyromegaly. CARDIOVASCULAR: S1 and S2 muffled PULMONARY: diminished breath sounds bilaterally with course rhonchi and some expiratory wheezing noted. ABDOMEN: soft. nontender on exam. non-distended, normoactive bowel sounds. No palpable organomegaly. MUSCULOSKELETAL: No joint swelling or deformity. EXTREMITIES: No cyanosis, clubbing, or pedal edema. NEUROLOGICAL: Gross neurological examination did not reveal any focal deficits. SKIN: No rashes. Assessment: Right middle lung pneumonia with failure of outpatient treatment Acute hypoxic respiratory failure secondary to above Hyponatremia Asthma, acute exacerbation history of psoriasis Multiple medical issues GI prophylaxis DVT prophylaxis Plan: Recommend to continue with current medications and management with pulmonary following. Patient is continued on breathing inhalational treatment and IV steroids and also IV antibiotics and having some worsening dyspnea last night into today and will increase IV steroids to 60mg q 6 hours. Follow up chest xray ordered. Encouraged increased activity as tolerated. Patient is continued on 4 L via NC and will titrate FI02 as tolerated. Will follow up with am labs and continue to monitor closely. Patient does not wear 02 in the outpatient setting. Recommend continue with incentive spirometer use at least 10 times every hour while awake. Due to multiple medical issues, prognosis is guarded. AM labs ordered. The impression and plan of care has been dictated by Kinza Wallace, nurse practitioner as directed. MD Garland I have performed a history and examination and MDM of this patient, discussed the same with the dictator, and agree with the dictator's assessment and plan as written ,documented as a scribe. Based on total visit time, I have performed more than 50% of the visit. Any additional findings or plans will be noted. Objective - Vital Signs Vital signs: Vital Signs Temp 97.7 F 11/02/21 14:00 Pulse 80 11/02/21 15:45 Resp 24 11/02/21 14:00 BP 151/76 11/02/21 14:00 Pulse Ox 97 11/02/21 14:00 FiO2 Intake & Output 11/01/21 11/02/21 11/02/21 18:59 06:59 18:59 Other: Voiding Method Toilet # Voids 3 3 3 - Labs CBC & Chem 7: 11/02/21 07:25 11/02/21 07:25 Labs: Abnormal Lab Results - Last 24 Hours (Table) 11/02/21 11/02/21 Range/Units 07:25 07:25 WBC 19.4 H (3.8-10.6) k/uL Neutrophils # 17.4 H (1.3-7.7) k/uL Lymphocytes # 0.7 L (1.0-4.8) k/uL Basophils # 0.4 H (0-0.2) k/uL Sodium 134 L (137-145) mmol/L Glucose 153 H (74-99) mg/dL Microbiology - Last 24 Hours (Table) 11/01/21 08:10 Gram Stain - Preliminary Sputum Sputum Culture - Preliminary 10/31/21 02:00 Blood Culture - Preliminary Blood No Growth after 48 hours 10/31/21 02:15 Blood Culture - Preliminary Blood No Growth after 48 hours
[2021-11-02] MEDS: MONTELUKAST 10 MG TAB PO SCH (20:31)
[2021-11-03] MEDS: amLODIPine 10 MG TAB PO SCH (05:35)
[2021-11-03] MEDS: methylPREDNISolone SOD SUCCI 125 MG/2 ML VIAL IV SCH ×4 (05:35→23:23)
[2021-11-03] MEDS: HEPARIN SODIUM,PORCINE/PF 5,000 UNIT/0.5 ML SYRINGE SQ SCH ×2 (07:24→20:36)
[2021-11-03] MEDS: AZITHROMYCIN 500 MG TAB PO SCH (07:24)
[2021-11-03] MEDS: PANTOPRAZOLE 40 MG TABLET PO SCH (07:25)
--- NOTE | 2021-11-03 08:00 | XR ---
EXAMINATION TYPE: XR chest 2V DATE OF EXAM: 11/03/2021 7:07 AM COMPARISON: Chest radiographs from 11/01/2021 TECHNIQUE: XR chest 2V Frontal and lateral views of the chest. CLINICAL INDICATION:Female, 61 years old with history of fu PNEUMONIA; FINDINGS: Lungs/Pleura: Interval development of left lung base hazy opacities with persistent although thought to be decrease in size right midlung airspace opacities. No pneumothorax. Lung of the costophrenic an gles. There is increased lucency of the lung apices with finding the diaphragms. Pulmonary vascularity: Unremarkable. Heart/mediastinum: Cardiomediastinal silhouette is unremarkable. Musculoskeletal: No acute osseous pathology. IMPRESSION: 1. Improving from 10/31/2021 opacity within the right midlung. 2. Interval development of increased airspace opacities within the left lung base compared to immedi ate prior. Correlate for pneumonia/atelectasis. 3. Suspected small pleural effusions. 4. COPD changes.
[2021-11-03 08:10] LABS: African American GFR (CKD) >90 (>60 ml/min/1.73 sqM); Anion Gap 10 mmol/L; Blood Urea Nitrogen 14 mg/dL (7-17); Carbon Dioxide 26 mmol/L (22-30); Chloride 97 mmol/L (98-107); Glucose 177 mg/dL (74-99); Non-African American GFR(CKD) >90 (>60 ml/min/1.73 sqM); Potassium 4.2 mmol/L (3.5-5.1); Sodium 133 mmol/L (137-145)
[2021-11-03] MEDS: IPRATROPIUM-ALBUTEROL 3 ML NEB INHALATION SCH ×4 (08:13→19:55)
[2021-11-03] MEDS: SYMBICORT 160-4.5 MCG INHALER INHALATION SCH (08:13)
[2021-11-03 08:18] LABS: HCT 39.6 % (34.0-46.0); HGB 13.5 gm/dL (11.4-16.0); MCH 31.2 pg (25.0-35.0); MCHC 34.1 g/dL (31.0-37.0); MCV 91.6 fL (80.0-100.0); Platelet Count 335 k/uL (150-450); RBC 4.33 m/uL (3.80-5.40); RDW 13.2 % (11.5-15.5); WBC 15.3 k/uL (3.8-10.6)
[2021-11-03 08:46] LABS: Band Neutrophils % 2 %; Lymphocytes # (M) 1.84 k/uL (1.0-4.8); Metamyelocytes # (M) 0.15 k/uL (0); Metamyelocytes % 1 %; Monocytes # (M) 0.77 k/uL (0-1.0); Myelocytes # (M) 1.22 k/uL (0); Myelocytes % 8 %; Neutrophils % (M) 73 %; Nucleated Red Blood Cells 0 /100 WBC (0-0); Total Cells Counted 200
[2021-11-03 08:48] LABS: Toxic Vacuolation Present
--- NOTE | 2021-11-03 11:51 | P.PN ---
Subjective Progress Note Date: 11/03/21 This is a 61 year old female who was recently admitted with increasing cough and congestion along with shortness of breath that had been progressively getting worse with no improvement. Patient is being closely monitored for bilateral pneumonia with pulmonary following. Chest xray ordered for today. Patient continued on breathing inhalational treatments, IV steroids, and IV abx. Patient currently maintained on 2 liters of 02 via NC and does not normally wear 02 in the outpatient setting. Recommend weaning as tolerated. Encouraged increased activity and will recommend incentive spirometer. Patient is afebrile and denies worsening shortness of breath or chest pain. Shortness of breath with exertion. Covid, rsv, influenza, and legionella are negative. Sputum culture collected and pending. 11/02/2021 Patient is seen today and reports to having worsening shortness of breath today and difficulty last night and requiring 4L via NC. Patient lungs sounds are diminished and chest is tight. Recommend increasing IV steroids to 60mg q 6 hours. Pulmonary following and will continue with breathing inhalational treatments. Follow up am chest xray ordered. Recommend keeping the room warm. Patient is afebrile and denies chest pain or palpitations. 11/03/2021 Patient evaluated today and down to 3L via NC and continues with dyspnea and frequent coughing spells and not much phlegm production. Sputum culture pending and continued on oral and IV abx. Pulmonary following. Patient denies chest pain or palpitations. Patient is afebrile. Recommend to continue with IS use and increased activity as tolerated. Blood pressure mildly elevated and will add norvasc and monitor vitals closely. Review of systems: Constitutional: No reports of fatigue, fever, or chills Cardiovascular: No reports of chest pain or palpitations Respiratory: reports of shortness of breath and continued cough GI: reports of nausea, no reports of of vomiting : No reports of dysuria or retention Neurovascular: no reports of generalized weakness All medications have been reviewed Active Medications Albuterol/Ipratropium (Ipratropium-Albuterol 3 Ml Neb) 3 ml INHALATION RT-Q4H PRN PRN Reason: shortness of breath Last Admin: 11/02/21 00:16 Dose: 3 ml Albuterol/Ipratropium (Ipratropium-Albuterol 3 Ml Neb) 3 ml INHALATION RT-QID KACI Last Admin: 11/03/21 11:40 Dose: 3 ml Amlodipine Besylate (Amlodipine 10 Mg Tab) 10 mg PO DAILY PENDING SALE TO [facility] Last Admin: 11/03/21 05:35 Dose: 10 mg Azithromycin (Azithromycin 500 Mg Tab) 500 mg PO DAILY PENDING SALE TO [facility]; Protocol Stop: 11/04/21 09:01 Last Admin: 11/03/21 07:24 Dose: 500 mg Budesonide (Budesonide 1 Mg/2 Ml Nebu) 1 mg INHALATION RT-BID PENDING SALE TO [facility] Formoterol Fumarate (Formoterol Fumarate 20 Mcg/2 Ml Nebu) 20 mcg INHALATION RT-BID PENDING SALE TO [facility] Heparin Sodium (Porcine) (Heparin Sodium,Porcine/Pf 5,000 Unit/0.5 Ml Syringe) 5,000 unit SQ Q12HR PENDING SALE TO [facility] Last Admin: 11/03/21 07:24 Dose: Not Given Ceftriaxone Sodium 2 gm/ (Sodium Chloride) 50 mls @ 100 mls/hr IVPB Q24H PENDING SALE TO [facility]; Protocol Stop: 11/04/21 03:29 Last Admin: 11/03/21 01:55 Dose: 100 mls/hr Methylprednisolone Sodium Succinate (Methylprednisolone Sod Succi 125 Mg/2 Ml Vial) 60 mg IV Q6HR PENDING SALE TO [facility] Last Admin: 11/03/21 05:35 Dose: 60 mg Miscellaneous Information (Pneumonia Protocol Utilized 1 Each Misc) 1 each PO ONCE PRN PRN Reason: Per Protocol Montelukast Sodium (Montelukast 10 Mg Tab) 10 mg PO [facility] Last Admin: 11/02/21 20:31 Dose: 10 mg Pantoprazole Sodium (Pantoprazole 40 Mg Tablet) 40 mg PO AC-BRKFST PENDING SALE TO [facility] Last Admin: 11/03/21 07:25 Dose: 40 mg PHYSICAL EXAMINATION: GENERAL: The patient is alert and oriented x4, Well developed, well nourished. HEENT: PERRLA. EOMI. no scleral icterus. No conjunctival pallor. Normocephalic, atraumatic. No pharyngeal erythema. No thyromegaly. CARDIOVASCULAR: S1 and S2 muffled PULMONARY: diminished breath sounds bilaterally with course rhonchi and some expiratory wheezing noted. ABDOMEN: soft. nontender on exam. non-distended, normoactive bowel sounds. No palpable organomegaly. MUSCULOSKELETAL: No joint swelling or deformity. EXTREMITIES: No cyanosis, clubbing, or pedal edema. NEUROLOGICAL: Gross neurological examination did not reveal any focal deficits. SKIN: No rashes. Assessment: Right middle lung pneumonia with failure of outpatient treatment Acute hypoxic respiratory failure secondary to above Hyponatremia Hypertension Asthma, acute exacerbation history of psoriasis Multiple medical issues GI prophylaxis DVT prophylaxis Plan: Recommend to continue with current medications and management with pulmonary following. Patient is continued on breathing inhalational treatment and IV steroids and also IV antibiotics and continues with dyspnea and frequent coughing spells. Recommend to continue IV steroids at 60mg q 6 hours. chest xray shows some mild improvement in aeration but continued increased airspace opacities is noted. Encouraged increased activity as tolerated. Patient is continued on 3 L via NC and will titrate FI02 as tolerated. labs reviewed and continue to monitor closely. Patient does not wear 02 in the outpatient setting. Blood pressure elevated and will add Norvasc. Recommend continue with incentive spirometer use at least 10 times every hour while awake. Due to multi ple medical issues, prognosis is guarded. The impression and plan of care has been dictated as a scribe by Kinza Wallace, nurse practitioner as directed. MD Garland I have performed a history and examination and MDM of this patient, discussed the same with the dictator, and has been documented as a scribe. Based on total visit time, I have performed more than 50% of the visit. Any additional findings or plans will be noted. Objective - Vital Signs Vital signs: Vital Signs Temp 98.4 F 11/03/21 08:00 Pulse 80 11/03/21 08:14 Resp 20 11/03/21 02:00 BP 154/86 11/03/21 08:00 Pulse Ox 93 L 11/03/21 08:00 FiO2 Intake & Output 11/02/21 11/03/21 11/03/21 18:59 06:59 18:59 Other: Voiding Method Toilet Toilet # Voids 3 3 - Labs CBC & Chem 7: 11/03/21 07:31 11/03/21 07:31 Labs: Abnormal Lab Results - Last 24 Hours (Table) 11/03/21 11/03/21 Range/Units 07:31 07:31 WBC 15.3 H (3.8-10.6) k/uL Neutrophils # (Manual) 11.40 H (1.3-7.7) k/uL Metamyelocytes # (Man) 0.15 H (0) k/uL Myelocytes # (Manual) 1.22 H (0) k/uL Sodium 133 L (137-145) mmol/L Chloride 97 L (98-107) mmol/L Glucose 177 H (74-99) mg/dL Microbiology - Last 24 Hours (Table) 10/31/21 02:00 Blood Culture - Preliminary Blood No Growth after 72 hours 10/31/21 02:15 Blood Culture - Preliminary Blood No Growth after 72 hours 11/01/21 08:10 Gram Stain - Preliminary Sputum Sputum Culture - Preliminary
--- NOTE | 2021-11-03 14:06 | P.PN ---
Subjective Progress Note Date: 11/03/21 This is a 61-year-old female patient, an occasional smoker, who comes into the hospital because of worsening shortness of breath and cough and congestion is been going on for the past 1-2 weeks. The patient has been having increased cough and congestion and generalized weakness and fatigue and tiredness. Denies having any fever. She was seen on outpatient basis and she tested negative for COVID 19. No travel history. No sick contacts. The patient has been vaccinated for, 19. During this current admission, the patient a chest x-ray that showed multilobar pneumonia. The chest x-ray showed patchy opacities in the right upper lobe and midlung. The left lower lobe consistent with pneumonia. The blood work showed a white cell count of 18.4 with hemoglobin 13.0 and a platelet count of 195. Normal coagulation profile. Sodium level was 127 with a potassium level of 4.3 BUN is 11 creatinine of 0.9. COVID 19 testing was also negative. Troponin was also negative at 0.01. Total protein was 6.7, albumin was 3.9. The patient was admitted to the hospital and started on a combination of Rocephin and Zithromax. Note that the patient has history of bronchial asthma and the patient has been maintained on tudorza inhaler on outpatient basis. She is also on Singulair 10 mg by mouth daily she has a nebulizer which she got DuoNeb nebulized treatment [id number]. She also uses pro-air rescue inhaler on an as-needed basis. 11/01/2021, the patient is feeling well. The patient is no specific complaints. The patient on IV antibiotics regarding the bilateral pneumonia and the infiltrates in the left lung base is improving and the right upper lobe consol idation is also improving. Pro-calcitonin level was elevated at 1.3. The patient remains on a, this Rocephin and Zithromax. Blood cultures negative for now. Meanwhile, the repeat blood work shows a white cell count 20.0 with a hemoglobin of 11.9 and a sodium level of 134. BUN is at 11 with a creatinine of 0.6. Legionella urine antigen was negative. 11/02/2021, the patient is doing well. No specific complaints. Pneumonia is being treated and the patient has a multilobar pneumonia. The patient remains on examination Rocephin and Zithromax. The patient remains on IV Solu-Medrol. Cultures are negative including Legionella urine antigen. Blood cultures also negative. 11/03/2021, the patient is being being treated for multilobar pneumonia. He is clinically improving. No new complaints. Nevertheless, the patient remains bronchospastic and wheezy in her chest remains tight. She remains on a combination of Rocephin and azithromycin she is also on IV Solu-Medrol. She is receiving DuoNeb nebulized treatment [id number]. No chest pain. No other new complaints otherwise for now. Objective - Vital Signs Vital signs: Vital Signs Temp 98.4 F 11/03/21 08:00 Pulse 76 11/03/21 11:53 Resp 20 11/03/21 02:00 BP 154/86 11/03/21 08:00 Pulse Ox 93 L 11/03/21 08:00 FiO2 Intake & Output 11/02/21 11/03/21 11/03/21 18:59 06:59 18:59 Other: Voiding Method Toilet Toilet # Voids 3 3 - Exam Gen. appearance, comfortable no acute distress, the patient is currently on 2 L of O2 nasal cannula Head exam was generally normal. There was no scleral icterus or corneal arcus. Mucous membranes were moist. Neck was supple and without jugular venous distension, thyromegaly, or carotid bruits. Carotids were easily palpable bilaterally. There was no adenopathy. Lungs sounds are diminished and the patient has scattered rhonchi and crackles heard throughout the lung otero bilaterally Cardiac exam revealed the PMI to be normally situated and sized. The rhythm was regular and no extrasystoles were noted during several minutes of auscultation. The first and second heart sounds were normal and physiologic splitting of the second heart sound was noted. There were no murmurs, rubs, clicks, or gallops. Abdominal exam revealed normal bowel sounds. The abdomen was soft, non-tender, and without masses, organomegaly, or appreciable enlargement of the abdominal aorta. Examination of the extremities revealed easily palpable radial, femoral and pedal pulses. There was no cyanosis, clubbing or edema. Examination of the skin revealed no evidence of significant rashes, suspicious appearing nevi or other concerning lesions. Neurologically, the patient is awake and alert and the patient does not have any focal neurological deficit. Cranial nerves are essentially intact. - Labs CBC & Chem 7: 11/03/21 07:31 11/03/21 07:31 Labs: Abnormal Lab Results - Last 24 Hours (Table) 11/03/21 11/03/21 Range/Units 07:31 07:31 WBC 15.3 H (3.8-10.6) k/uL Neutrophils # (Manual) 11.40 H (1.3-7.7) k/uL Metamyelocytes # (Man) 0.15 H (0) k/uL Myelocytes # (Manual) 1.22 H (0) k/uL Sodium 133 L (137-145) mmol/L Chloride 97 L (98-107) mmol/L Glucose 177 H (74-99) mg/dL Microbiology - Last 24 Hours (Table) 11/01/21 08:10 Gram Stain - Final Sputum Sputum Culture - Final 10/31/21 02:00 Blood Culture - Preliminary Blood No Growth after 72 hours 10/31/21 02:15 Blood Culture - Preliminary Blood No Growth after 72 hours Assessment and Plan Plan: Current acquired multilobar pneumonia, bilateral, rule out bacterial pneumonia. 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 There is still some infiltration left lung base Continue bronchodilators Continue Rocephin and Zithromax Continued IV Solu-Medrol Will monitor the need for calcitonin level Continue Solu-Medrol 60 mg every 6 hours Heparin subcu for DVT prophylaxis Sodium level improved We'll continue to follow
[2021-11-03] MEDS: BUDESONIDE 1 MG/2 ML NEBU INHALATION SCH (19:54)
[2021-11-03] MEDS: FORMOTEROL FUMARATE 20 MCG/2 ML NEBU INHALATION SCH (19:54)
[2021-11-03] MEDS: MONTELUKAST 10 MG TAB PO SCH (20:36)
[2021-11-04 03:00] LABS: Mycoplasma IgG Antibody (EIA) 2.29 INDEX (<=0.90); Mycoplasma IgM Antibody 0.3 INDEX (<=0.90)
[2021-11-04] MEDS: methylPREDNISolone SOD SUCCI 125 MG/2 ML VIAL IV SCH ×3 (05:53→18:50)
[2021-11-04] MEDS: PANTOPRAZOLE 40 MG TABLET PO SCH (08:02)
[2021-11-04] MEDS: AZITHROMYCIN 500 MG TAB PO SCH (08:02)
[2021-11-04] MEDS: amLODIPine 10 MG TAB PO SCH (08:02)
[2021-11-04] MEDS: IPRATROPIUM-ALBUTEROL 3 ML NEB INHALATION SCH ×4 (08:21→19:34)
[2021-11-04] MEDS: BUDESONIDE 1 MG/2 ML NEBU INHALATION SCH ×2 (08:21→19:34)
[2021-11-04] MEDS: FORMOTEROL FUMARATE 20 MCG/2 ML NEBU INHALATION SCH ×2 (08:21→19:34)
[2021-11-04 10:45] LABS: HCT 42.5 % (34.0-46.0); MCH 30.6 pg (25.0-35.0); MCHC 32.9 g/dL (31.0-37.0); MCV 93.1 fL (80.0-100.0); Mean Platelet Volume 6.6; Platelet Count 378 k/uL (150-450); RBC 4.56 m/uL (3.80-5.40); RDW 12.8 % (11.5-15.5); WBC 20.9 k/uL (3.8-10.6)
[2021-11-04 10:56] LABS: African American GFR (CKD) >90 (>60 ml/min/1.73 sqM); Anion Gap 9 mmol/L; Blood Urea Nitrogen 17 mg/dL (7-17); Carbon Dioxide 29 mmol/L (22-30); Chloride 94 mmol/L (98-107); Glucose 161 mg/dL (74-99); Non-African American GFR(CKD) >90 (>60 ml/min/1.73 sqM); Potassium 4.2 mmol/L (3.5-5.1); Sodium 132 mmol/L (137-145)
[2021-11-04] MEDS: HEPARIN SODIUM,PORCINE/PF 5,000 UNIT/0.5 ML SYRINGE SQ SCH ×2 (11:40→19:45)
[2021-11-04 13:13] LABS: Band Neutrophils % 4 %; Metamyelocytes # (M) 0.84 k/uL (0); Metamyelocytes % 4 %; Monocytes # (M) 0.63 k/uL (0-1.0); Myelocytes # (M) 0.63 k/uL (0); Myelocytes % 3 %; Neutrophils % (M) 77 %; Nucleated Red Blood Cells 0 /100 WBC (0-0); Total Cells Counted 200
[2021-11-04 13:18] LABS: RBC Morphology Normal
--- NOTE | 2021-11-04 14:00 | P.PN ---
Subjective Progress Note Date: 11/04/21 Principal diagnosis: Shortness of breath This is a 61-year-old female patient, an occasional smoker, who comes into the hospital because of worsening shortness of breath and cough and congestion is been going on for the past 1-2 weeks. The patient has been having increased cou gh and congestion and generalized weakness and fatigue and tiredness. Denies having any fever. She was seen on outpatient basis and she tested negative for COVID 19. No travel history. No sick contacts. The patient has been vaccinated for, 19. During this current admission, the patient a chest x-ray that showed multilobar pneumonia. The chest x-ray showed patchy opacities in the right upper lobe and midlung. The left lower lobe consistent with pneumonia. The blood work showed a white cell count of 18.4 with hemoglobin 13.0 and a platelet count of 195. Normal coagulation profile. Sodium level was 127 with a potassium level of 4.3 BUN is 11 creatinine of 0.9. COVID 19 testing was also negative. Troponin was also negative at 0.01. Total protein was 6.7, albumin was 3.9. The patient was admitted to the hospital and started on a combination of Rocephin and Zithromax. Note that the patient has history of bronchial asthma and the patient has been maintained on tudorza inhaler on outpatient basis. She is also on Singulair 10 mg by mouth daily she has a nebulizer which she got DuoNeb nebulized treatment [id number]. She also uses pro-air rescue inhaler on an as-needed basis. 11/01/2021, the patient is feeling well. The patient is no specific complaints. The patient on IV antibiotics regarding the bilateral pneumonia and the infiltrates in the left lung base is improving and the right upper lobe consolidation is also improving. Pro-calcitonin level was elevated at 1.3. The patient remains on a, this Rocephin and Zithromax. Blood cultures negative for now. Meanwhile, the repeat blood work shows a white cell count 20.0 with a hemoglobin of 11.9 and a sodium level of 134. BUN is at 11 with a creatinine of 0.6. Legionella urine antigen was negative. 11/02/2021, the patient is doing well. No specific complaints. Pneumonia is being treated and the patient has a multilobar pneumonia. The patient remains on examination Rocephin and Zithromax. The patient remains on IV Solu-Medrol. Cultures are negative including Legionella urine antigen. Blood cultures also negative. 11/03/2021, the patient is being being treated for multilobar pneumonia. He is clinically improving. No new complaints. Nevertheless, the patient remains bronchospastic and wheezy in her chest remains tight. She remains on a combination of Rocephin and azithromycin she is also on IV Solu-Medrol. She is receiving DuoNeb nebulized treatment [id number]. No chest pain. No other new complaints otherwise for now. On 11/04/2021 patient seen in follow-up on medical surgical floor. She is alert, in no acute distress, remains on 3 L of oxygen, pulse ox is 96-98%, she is sitting up in a recliner, denies any chest discomfort, however her voice is hoarse, and she is dyspneic with exertion. Afebrile, vital signs have been stable, remains on azithromycin and Rocephin for antibiotic coverage. Sputum culture has been sent, and pending, blood cultures are negative. White blood cell count is 20.9, hemoglobin is 14, sodium is 132, potassium is 4.2, chloride is 94, BUN is 17, creatinine 0.58. Legionella urine antigen was negative, mycoplasma pneumonia IgG was 2.29, and mycoplasma pneumonia IgM was 0.30. Patient remains on IV steroids, and nebulized bronchodilators. Objective - Vital Signs Vital signs: Vital Signs Temp 97.9 F 11/04/21 07:18 Pulse 76 11/04/21 12:03 Resp 18 11/04/21 07:20 BP 161/84 11/04/21 07:18 Pulse Ox 96 11/04/21 07:18 FiO2 Intake & Output 11/03/21 11/04/21 11/04/21 18:59 06:59 18:59 Other: Voiding Method Toilet Toilet Toilet # Voids 3 1 - Exam GENERAL EXAM: Alert, very pleasant, 61-year-old white female on 3 L of oxygen pulse ox of 96-98% comfortable in no apparent distress. HEAD: Normocephalic/atraumatic. EYES: Normal reaction of pupils, equal size. Conjunctiva pink, sclera white. NOSE: Clear with pink turbinates. THROAT: No erythema or exudates. NECK: No masses, no JVD, no thyroid enlargement, no adenopathy. CHEST: No chest wall deformity. Symmetrical expansion. LUNGS: Equal air entry with scattered rhonchi and crackles CVS: Regular rate and rhythm, normal S1 and S2, no gallops, no murmurs, no rubs ABDOMEN: Soft, nontender. No hepatosplenomegaly, normal bowel sounds, no guarding or rigidity. EXTREMITIES: No clubbing, no edema, no cyanosis, 2+ pulses and upper and lower extremities. MUSCULOSKELETAL: Muscle strength and tone normal. SPINE: No scoliosis or deformity SKIN: No rashes CENTRAL NERVOUS SYSTEM: Alert and oriented -3. No focal deficits, tone is normal in all 4 extremities. PSYCHIATRIC: Alert and oriented -3. Appropriate affect. Intact judgment and insight. - Labs CBC & Chem 7: 11/04/21 10:28 11/04/21 10:28 Labs: Abnormal Lab Results - Last 24 Hours (Table) 11/01/21 11/04/21 11/04/21 Range/Units 05:34 10:28 10:28 WBC 20.9 H (3.8-10.6) k/uL Neutrophils # (Manual) 16.90 H (1.3-7.7) k/uL Metamyelocytes # (Man) 0.84 H (0) k/uL Myelocytes # (Manual) 0.63 H (0) k/uL Sodium 132 L (137-145) mmol/L Chloride 94 L (98-107) mmol/L Glucose 161 H (74-99) mg/dL Mycoplasma pneumon IgG 2.29 H (<=0.90) INDEX Microbiology - Last 24 Hours (Table) 11/03/21 19:59 Sputum Culture - Preliminary Sputum 10/31/21 02:00 Blood Culture - Preliminary Blood No Growth after 96 hours 10/31/21 02:15 Blood Culture - Preliminary Blood No Growth after 96 hours 11/01/21 08:10 Gram Stain - Final Sputum Sputum Culture - Final Assessment and Plan Plan: Assessment: #1. Acute multilobar pneumonia, bilateral, bacterial, possibly community acquired. COVID-19 PCR, influenza A and B, Legionella urine antigen were negative, mycoplasma pneumonia IgG is elevated, IgM is negative #2. Acute hypoxic respiratory failure related to the above #3. Acute exacerbation of chronic bronchial asthma, unspecified #4. History of smoking #5. Hyponatremia, consider pneumonia related to SIADH Plan: Continue current antibiotic coverage with azithromycin and Rocephin, continue IV steroids Continue breathing treatments GI and DVT prophylaxis Continue current inpatient treatment Quite ready for discharge We'll continue to follow I have personally seen and examined the patient, performed the documentation and the assessment and plan as written. Number of minutes spent on the visit: [10] Time with Patient: Less than 30
--- NOTE | 2021-11-04 18:33 | P.PN ---
Subjective Progress Note Date: 11/04/21 This is a 61 year old female who was recently admitted with increasing cough and congestion along with shortness of breath that had been progressively getting worse with no improvement. Patient is being closely monitored for bilateral pneumonia with pulmonary following. Chest xray ordered for today. Patient continued on breathing inhalational treatments, IV steroids, and IV abx. Patient currently maintained on 2 liters of 02 via NC and does not normally wear 02 in the outpatient setting. Recommend weaning as tolerated. Encouraged increased activity and will recommend incentive spirometer. Patient is afebrile and denies worsening shortness of breath or chest pain. Shortness of breath with exertion. Covid, rsv, influenza, and legionella are negative. Sputum culture collected and pending. 11/02/2021 Patient is seen today and reports to having worsening shortness of breath today and difficulty last night and requiring 4L via NC. Patient lungs sounds are diminished and chest is tight. Recommend increasing IV steroids to 60mg q 6 hours. Pulmonary following and will continue with breathing inhalational treatments. Follow up am chest xray ordered. Recommend keeping the room warm. Patient is afebrile and denies chest pain or palpitations. 11/03/2021 Patient evaluated today and down to 3L via NC and continues with dyspnea and frequent coughing spells and not much phlegm production. Sputum culture pending and continued on oral and IV abx. Pulmonary following. Patient denies chest pain or palpitations. Patient is afebrile. Recommend to continue with IS use and increased activity as tolerated. Blood pressure mildly elevated and will add norvasc and monitor vitals closely. 11/04/2021 Patient is seen today with pulmonary following and continues on IV steroids, abx, and continued breathing treatments. Patient is bronchospastic and having increased wheezing noted on exam. Patient continues to require supplemental oxygen at maintained on 3L via NC. Encouraged incentive spirometer use and keeping the room warm. Patient is afebrile and denies chest pain or palpitations. Patient is tolerating diet with no reported nausea or vomiting. Will evaluate for home oxygen. Review of systems: Constitutional: No reports of fatigue, fever, or chills Cardiovascular: No reports of chest pain or palpitations Respiratory: reports of shortness of breath and continued cough GI: reports of nausea, no reports of of vomiting : No reports of dysuria or retention Neurovascular: no reports of generalized weakness All medications have been reviewed Active Medications Albuterol/Ipratropium (Ipratropium-Albuterol 3 Ml Neb) 3 ml INHALATION RT-Q4H PRN PRN Reason: shortness of breath Last Admin: 11/02/21 00:16 Dose: 3 ml Albuterol/Ipratropium (Ipratropium-Albuterol 3 Ml Neb) 3 ml INHALATION RT-QID KACI Last Admin: 11/04/21 15:44 Dose: 3 ml Amlodipine Besylate (Amlodipine 10 Mg Tab) 10 mg PO DAILY KACI Last Admin: 11/04/21 08:02 Dose: 10 mg Azithromycin (Azithromycin 500 Mg Tab) 500 mg PO DAILY [facility]; Protocol Stop: 11/07/21 09:01 Budesonide (Budesonide 1 Mg/2 Ml Nebu) 1 mg INHALATION RT-BID KACI Last Admin: 11/04/21 08:21 Dose: 1 mg Formoterol Fumarate (Formoterol Fumarate 20 Mcg/2 Ml Nebu) 20 mcg INHALATION RT-BID KACI Last Admin: 11/04/21 08:21 Dose: 20 mcg Heparin Sodium (Porcine) (Heparin Sodium,Porcine/Pf 5,000 Unit/0.5 Ml Syringe) 5,000 unit SQ Q12HR KACI Last Admin: 11/04/21 11:40 Dose: Not Given Ceftriaxone Sodium 1 gm/ (Sodium Chloride) 50 mls @ 100 mls/hr IVPB Q24HR KACI; Protocol Last Admin: 11/04/21 11:40 Dose: 100 mls/hr Methylprednisolone Sodium Succinate (Methylprednisolone Sod Succi 125 Mg/2 Ml Vial) 60 mg IV Q6HR KACI Last Admin: 11/04/21 11:40 Dose: 60 mg Miscellaneous Information (Pneumonia [facility] 1 each PO ONCE PRN PRN Reason: Per Protocol Montelukast Sodium (Montelukast 10 Mg Tab) 10 mg PO HS [facility] Last Admin: 11/03/21 20:36 Dose: 10 mg Pantoprazole Sodium (Pantoprazole 40 Mg Tablet) 40 mg PO AC-BRKFST [facility] Last Admin: 11/04/21 08:02 Dose: 40 mg PHYSICAL EXAMINATION: GENERAL: The patient is alert and oriented x4, Well developed, well nourished. HEENT: PERRLA. EOMI. no scleral icterus. No conjunctival pallor. Normocephalic, atraumatic. No pharyngeal erythema. No thyromegaly. CARDIOVASCULAR: S1 and S2 muffled PULMONARY: diminished breath sounds bilaterally with course rhonchi and increased inspiratory and expiratory wheezing noted. ABDOMEN: soft. nontender on exam. non-distended, normoactive bowel sounds. No palpable organomegaly. MUSCULOSKELETAL: No joint swelling or deformity. EXTREMITIES: No cyanosis, clubbing, or pedal edema. NEUROLOGICAL: Gross neurological examination did not reveal any focal deficits. SKIN: No rashes. Assessment: Right middle lung pneumonia with failure of outpatient treatment Acute hypoxic respiratory failure secondary to above Hyponatremia Hypertension Bronchial Asthma, acute exacerbation history of psoriasis Multiple medical issues GI prophylaxis DVT prophylaxis Plan: Recommend to continue with current medications and management with pulmonary following. Patient is continued on breathing inhalational treatment and IV steroids and also IV antibiotics and continues with dyspnea and frequent coughing spells. IV steroids continued as patient is having increased wheezing noted. Encouraged increased activity as tolerated. Patient is continued on 3 L via NC and will titrate FI02 as tolerated. Home 02 assessment ordered and will discuss with case management about requiring home 02 to be able to manage her bronchial asthma. labs reviewed and continue to monitor closely. Recommend continue with incentive spirometer use at least 10 times every hour while awake. Due to multiple medical issues, prognosis is guarded. Possible discharge in 24- 48 hours. The impression and plan of care has been dictated by Kinza Wallace, Nurse Practitioner as directed. Dr. Marcello MD I have performed a history and examination and MDM of this patient, discussed the same with the dictator, and agree with the dictator's assessment and plan as written ,documented as a scribe. Based on total visit time, I have performed more than 50% of the visit. Objective - Vital Signs Vital signs: Vital Signs Temp 97.7 F 11/04/21 14:00 Pulse 84 11/04/21 15:58 Resp 18 11/04/21 14:00 BP 146/80 11/04/21 14:00 Pulse Ox 93 L 11/04/21 14:00 FiO2 Intake & Output 11/03/21 11/04/21 11/04/21 18:59 06:59 18:59 Intake Total 592 Balance 592 Intake: Oral 592 Other: Voiding Method Toilet Toilet Toilet # Voids 3 1 3 - Labs CBC & Chem 7: 11/04/21 10:28 11/04/21 10:28 Labs: Abnormal Lab Results - Last 24 Hours (Table) 11/01/21 11/04/21 11/04/21 Range/Units 05:34 10:28 10:28 WBC 20.9 H (3.8-10.6) k/uL Neutrophils # (Manual) 16.90 H (1.3-7.7) k/uL Metamyelocytes # (Man) 0.84 H (0) k/uL Myelocytes # (Manual) 0.63 H (0) k/uL Sodium 132 L (137-145) mmol/L Chloride 94 L (98-107) mmol/L Glucose 161 H (74-99) mg/dL Mycoplasma pneumon IgG 2.29 H (<=0.90) INDEX Microbiology - Last 24 Hours (Table) 11/03/21 19:59 Sputum Culture - Preliminary Sputum 10/31/21 02:00 Blood Culture - Preliminary Blood No Growth after 96 hours 10/31/21 02:15 Blood Culture - Preliminary Blood No Growth after 96 hours
[2021-11-04] MEDS: MONTELUKAST 10 MG TAB PO SCH (20:07)
[2021-11-05] MEDS: methylPREDNISolone SOD SUCCI 125 MG/2 ML VIAL IV SCH ×3 (00:38→12:18)
--- NOTE | 2021-11-05 06:54 | XR ---
EXAMINATION TYPE: XR chest 1V portable DATE OF EXAM: 11/05/2021 CLINICAL HISTORY: Difficulty breathing progress study. TECHNIQUE: Single AP portable upright view of the chest is obtained. COMPARISON: Chest x-ray from 2 days earlier and older studies FINDINGS: Patchy left basilar opacity on current study slightly improved from most recent prior. Rig ht midlung opacity abutting fissure laterally slightly improved from most recent prior. No new suspic ious focal airspace opacity, pleural effusion, or pneumothorax is seen. Cardiac silhouette size stabl e and upper limits of normal. Underlying scoliotic curvature with spurring in the spine is present. IMPRESSION: Improving inferior lateral right upper lung consolidation and left basilar acute infiltra te and/or atelectasis. No new infiltrate is seen.
[2021-11-05 07:07] LABS: African American GFR (CKD) >90 (>60 ml/min/1.73 sqM); Anion Gap 6 mmol/L; Blood Urea Nitrogen 19 mg/dL (7-17); Calcium 8.5 mg/dL (8.4-10.2); Carbon Dioxide 32 mmol/L (22-30); Chloride 94 mmol/L (98-107); Glucose 123 mg/dL (74-99); Non-African American GFR(CKD) >90 (>60 ml/min/1.73 sqM); Potassium 4.3 mmol/L (3.5-5.1); Sodium 132 mmol/L (137-145)
[2021-11-05 08:02] LABS: HCT 39.3 % (34.0-46.0); HGB 13.2 gm/dL (11.4-16.0); MCH 30.9 pg (25.0-35.0); MCHC 33.7 g/dL (31.0-37.0); MCV 91.7 fL (80.0-100.0); Mean Platelet Volume 7.1; Platelet Count 363 k/uL (150-450); RBC 4.28 m/uL (3.80-5.40); RDW 13.2 % (11.5-15.5); WBC 18.7 k/uL (3.8-10.6)
[2021-11-05] MEDS: IPRATROPIUM-ALBUTEROL 3 ML NEB INHALATION SCH ×4 (08:22→19:31)
[2021-11-05] MEDS: FORMOTEROL FUMARATE 20 MCG/2 ML NEBU INHALATION SCH ×2 (08:22→19:31)
[2021-11-05] MEDS: BUDESONIDE 1 MG/2 ML NEBU INHALATION SCH ×2 (08:22→19:31)
[2021-11-05] MEDS: AZITHROMYCIN 500 MG TAB PO SCH (08:26)
[2021-11-05] MEDS: PANTOPRAZOLE 40 MG TABLET PO SCH (08:26)
[2021-11-05] MEDS: HEPARIN SODIUM,PORCINE/PF 5,000 UNIT/0.5 ML SYRINGE SQ SCH ×2 (08:26→19:58)
[2021-11-05] MEDS: amLODIPine 10 MG TAB PO SCH (08:26)
[2021-11-05 09:12] LABS: Band Neutrophils % 2 %; Lymphocytes # (M) 3.74 k/uL (1.0-4.8); Monocytes # (M) 0.94 k/uL (0-1.0); Myelocytes # (M) 0.37 k/uL (0); Myelocytes % 2 %; Neutrophils % (M) 73 %; Nucleated Red Blood Cells 0 /100 WBC (0-0); Polychromasia Present; Total Cells Counted 200
--- NOTE | 2021-11-05 12:42 | P.PN ---
Subjective Progress Note Date: 11/05/21 Principal diagnosis: Shortness of breath This is a 61-year-old female patient, an occasional smoker, who comes into the hospital because of worsening shortness of breath and cough and congestion is been going on for the past 1-2 weeks. The patient has been having increased cou gh and congestion and generalized weakness and fatigue and tiredness. Denies having any fever. She was seen on outpatient basis and she tested negative for COVID 19. No travel history. No sick contacts. The patient has been vaccinated for, 19. During this current admission, the patient a chest x-ray that showed multilobar pneumonia. The chest x-ray showed patchy opacities in the right upper lobe and midlung. The left lower lobe consistent with pneumonia. The blood work showed a white cell count of 18.4 with hemoglobin 13.0 and a platelet count of 195. Normal coagulation profile. Sodium level was 127 with a potassium level of 4.3 BUN is 11 creatinine of 0.9. COVID 19 testing was also negative. Troponin was also negative at 0.01. Total protein was 6.7, albumin was 3.9. The patient was admitted to the hospital and started on a combination of Rocephin and Zithromax. Note that the patient has history of bronchial asthma and the patient has been maintained on tudorza inhaler on outpatient basis. She is also on Singulair 10 mg by mouth daily she has a nebulizer which she got DuoNeb nebulized treatment [id number]. She also uses pro-air rescue inhaler on an as-needed basis. 11/01/2021, the patient is feeling well. The patient is no specific complaints. The patient on IV antibiotics regarding the bilateral pneumonia and the infiltrates in the left lung base is improving and the right upper lobe consolidation is also improving. Pro-calcitonin level was elevated at 1.3. The patient remains on a, this Rocephin and Zithromax. Blood cultures negative for now. Meanwhile, the repeat blood work shows a white cell count 20.0 with a hemoglobin of 11.9 and a sodium level of 134. BUN is at 11 with a creatinine of 0.6. Legionella urine antigen was negative. 11/02/2021, the patient is doing well. No specific complaints. Pneumonia is being treated and the patient has a multilobar pneumonia. The patient remains on examination Rocephin and Zithromax. The patient remains on IV Solu-Medrol. Cultures are negative including Legionella urine antigen. Blood cultures also negative. 11/03/2021, the patient is being being treated for multilobar pneumonia. He is clinically improving. No new complaints. Nevertheless, the patient remains bronchospastic and wheezy in her chest remains tight. She remains on a combination of Rocephin and azithromycin she is also on IV Solu-Medrol. She is receiving DuoNeb nebulized treatment [id number]. No chest pain. No other new complaints otherwise for now. On 11/04/2021 patient seen in follow-up on medical surgical floor. She is alert, in no acute distress, remains on 3 L of oxygen, pulse ox is 96-98%, she is sitting up in a recliner, denies any chest discomfort, however her voice is hoarse, and she is dyspneic with exertion. Afebrile, vital signs have been stable, remains on azithromycin and Rocephin for antibiotic coverage. Sputum culture has been sent, and pending, blood cultures are negative. White blood cell count is 20.9, hemoglobin is 14, sodium is 132, potassium is 4.2, chloride is 94, BUN is 17, creatinine 0.58. Legionella urine antigen was negative, mycoplasma pneumonia IgG was 2.29, and mycoplasma pneumonia IgM was 0.30. Patient remains on IV steroids, and nebulized bronchodilators. On 11/05/2021 patient seen in follow-up on medical surgical floor. Patient states she is feeling better, and her chest x-ray shows improving inferior lateral right upper lung consolidation and left basilar acute infiltrate. No hemoptysis, no chest pain. White blood cell count is improving, and is down to 18.7, hemoglobin is 13.2, sodium is 132, potassium is 4.3, chloride is 94, CO2 is 32, BUN is 19, creatinine 0.61. Patient continues on azithromycin and Rocephin. Blood and sputum cultures have shown no growth thus far. Patient has been ambulating in the room, tolerating activity well. Objective - Vital Signs Vital signs: Vital Signs Temp 98.6 F 11/05/21 07:39 Pulse 82 11/05/21 11:48 Resp 18 11/05/21 11:48 BP 142/86 11/05/21 07:39 Pulse Ox 93 L 11/05/21 07:39 FiO2 Intake & Output 11/04/21 11/05/21 11/05/21 18:59 06:59 18:59 Intake Total 592 296 Balance 592 296 Intake: Oral 592 296 Other: Voiding Method Toilet Toilet Toilet # Voids 3 2 - Exam GENERAL EXAM: Alert, very pleasant, 61-year-old white female on 3 L of oxygen pulse ox of 96-98% comfortable in no apparent distress. HEAD: Normocephalic/atraumatic. EYES: Normal reaction of pupils, equal size. Conjunctiva pink, sclera white. NOSE: Clear with pink turbinates. THROAT: No erythema or exudates. NECK: No masses, no JVD, no thyroid enlargement, no adenopathy. CHEST: No chest wall deformity. Symmetrical expansion. LUNGS: Equal air entry with scattered rhonchi and crackles CVS: Regular rate and rhythm, normal S1 and S2, no gallops, no murmurs, no rubs ABDOMEN: Soft, nontender. No hepatosplenomegaly, normal bowel sounds, no guarding or rigidity. EXTREMITIES: No clubbing, no edema, no cyanosis, 2+ pulses and upper and lower extremities. MUSCULOSKELETAL: Muscle strength and tone normal. SPINE: No scoliosis or deformity SKIN: No rashes CENTRAL NERVOUS SYSTEM: Alert and oriented -3. No focal deficits, tone is normal in all 4 extremities. PSYCHIATRIC: Alert and oriented -3. Appropriate affect. Intact judgment and insight. - Labs CBC & Chem 7: 11/05/21 06:01 11/05/21 06:01 Labs: Abnormal Lab Results - Last 24 Hours (Table) 11/04/21 11/05/21 11/05/21 Range/Units 10:28 06:01 06:01 WBC 18.7 H (3.8-10.6) k/uL Neutrophils # (Manual) 16.90 H 14.00 H (1.3-7.7) k/uL Metamyelocytes # (Man) 0.84 H (0) k/uL Myelocytes # (Manual) 0.63 H 0.37 H (0) k/uL Sodium 132 L (137-145) mmol/L Chloride 94 L (98-107) mmol/L Carbon Dioxide 32 H (22-30) mmol/L BUN 19 H (7-17) mg/dL Glucose 123 H (74-99) mg/dL Microbiology - Last 24 Hours (Table) 10/31/21 02:00 Blood Culture - Preliminary Blood No Growth after 120 hours 10/31/21 02:15 Blood Culture - Preliminary Blood No Growth after 120 hours 11/03/21 19:59 Gram Stain - Preliminary Sputum Sputum Culture - Preliminary Assessment and Plan Plan: Assessment: #1. Acute multilobar pneumonia, bilateral, bacterial, possibly community acquired. COVID-19 PCR, influenza A and B, Legionella urine antigen were negative, mycoplasma pneumonia IgG is elevated, IgM is negative #2. Acute hypoxic respiratory failure related to the above #3. Acute exacerbation of chronic bronchial asthma, unspecified #4. History of smoking #5. Hyponatremia, consider pneumonia related to SIADH, improved #6. Suspected COPD, severity is unknown Plan: Chest x-ray shows improvement in the appearance of bilateral pneumonia IV steroids can be transitioned to oral prednisone Weaning FiO2, obtain home oxygen assessment Increase activity as tolerated Stable for discharge home from pulmonary perspective We will extend her oral antibiotic course for 5 more days with Levaquin 500 mg daily Prednisone taper starting at 40 mg daily Patient has DuoNeb nebulized treatments at home She will likely qualify for home oxygen, for a diagnosis of chronic bronchial asthma/COPD Outpatient follow-up with Dr. Alejandre in the office We'll likely switch her maintenance inhalers to Trelegy, on an outpatient basis to take place of her of Breann In the meantime she can continue on prednisone taper, nebulized bronchodilators, Singulair, Pareshrza I have personally seen and examined the patient, performed the documentation and the assessment and plan as written. Number of minutes spent on the visit: [10] Time with Patient: Less than 30
--- NOTE | 2021-11-05 15:55 | P.PN ---
Subjective Progress Note Date: 11/05/21 This is a 61 year old female who was recently admitted with increasing cough and congestion along with shortness of breath that had been progressively getting worse with no improvement. Patient is being closely monitored for bilateral pneumonia with pulmonary following. Chest xray ordered for today. Patient continued on breathing inhalational treatments, IV steroids, and IV abx. Patient currently maintained on 2 liters of 02 via NC and does not normally wear 02 in the outpatient setting. Recommend weaning as tolerated. Encouraged increased activity and will recommend incentive spirometer. Patient is afebrile and denies worsening shortness of breath or chest pain. Shortness of breath with exertion. Covid, rsv, influenza, and legionella are negative. Sputum culture collected and pending. 11/02/2021 Patient is seen today and reports to having worsening shortness of breath today and difficulty last night and requiring 4L via NC. Patient lungs sounds are diminished and chest is tight. Recommend increasing IV steroids to 60mg q 6 hours. Pulmonary following and will continue with breathing inhalational treatments. Follow up am chest xray ordered. Recommend keeping the room warm. Patient is afebrile and denies chest pain or palpitations. 11/03/2021 Patient evaluated today and down to 3L via NC and continues with dyspnea and frequent coughing spells and not much phlegm production. Sputum culture pending and continued on oral and IV abx. Pulmonary following. Patient denies chest pain or palpitations. Patient is afebrile. Recommend to continue with IS use and increased activity as tolerated. Blood pressure mildly elevated and will add norvasc and monitor vitals closely. 11/04/2021 Patient is seen today with pulmonary following and continues on IV steroids, abx, and continued breathing treatments. Patient is bronchospastic and having increased wheezing noted on exam. Patient continues to require supplemental oxygen at maintained on 3L via NC. Encouraged incentive spirometer use and keeping the room warm. Patient is afebrile and denies chest pain or palpitations. Patient is tolerating diet with no reported nausea or vomiting. Will evaluate for home oxygen. 11/05/2021 Patient is seen in follow-up this morning and currently maintained on IV ceftriaxone along with Zithromax and maintained on prednisone and being transitioned oral prednisone. Patient continues on DuoNeb treatments with pulmonary following closely. Patient continues to be bronchospastic with wheezing inspiratory and expiratory noted on exam. Chest x-ray shows improving inferior lateral right upper lung consolidation and left basilar acute infiltrate and/or atelectasis with no new infiltrate seen. Patient does have incentive spirometer at the bedside and encourage the patient use at least 10 times every hour while awake. Patient is slow to improve and medications being adjusted and will follow-up closely with pulmonary the outpatient setting. Patient is currently afebrile and denies any worsening shortness of breath or chest pains. Home O2 assessment ordered as patient will require 3 L of oxygen via nasal cannula to manage COPD on discharge. Social work following and arranging for home oxygen to be delivered. Review of systems: Constitutional: No reports of fatigue, fever, or chills Cardiovascular: No reports of chest pain or palpitations Respiratory: reports of shortness of breath and continued cough GI: reports of nausea, no reports of of vomiting : No reports of dysuria or retention Neurovascular: no reports of generalized weakness All medications have been reviewed Active Medications Albuterol/Ipratropium (Ipratropium-Albuterol 3 Ml Neb) 3 ml INHALATION RT-Q4H PRN PRN Reason: shortness of breath Last Admin: 11/02/21 00:16 Dose: 3 ml Albuterol/Ipratropium (Ipratropium-Albuterol 3 Ml Neb) 3 ml INHALATION RT-QID PENDING SALE TO [facility] Last Admin: 11/05/21 15:12 Dose: 3 ml Amlodipine Besylate (Amlodipine 10 Mg Tab) 10 mg PO DAILY PENDING SALE TO [facility] Last Admin: 11/05/21 08:26 Dose: 10 mg Azithromycin (Azithromycin 500 Mg Tab) 500 mg PO DAILY PENDING SALE TO [facility]; Protocol Stop: 11/07/21 09:01 Last Admin: 11/05/21 08:26 Dose: 500 mg Budesonide (Budesonide 1 Mg/2 Ml Nebu) 1 mg INHALATION RT-BID PENDING SALE TO [facility] Last Admin: 11/05/21 08:22 Dose: 1 mg Formoterol Fumarate (Formoterol Fumarate 20 Mcg/2 Ml Nebu) 20 mcg INHALATION RT-BID PENDING SALE TO [facility] Last Admin: 11/05/21 08:22 Dose: 20 mcg Heparin Sodium (Porcine) (Heparin Sodium,Porcine/Pf 5,000 Unit/0.5 Ml Syringe) 5,000 unit SQ Q12HR PENDING SALE TO [facility] Last Admin: 11/05/21 08:26 Dose: Not Given Ceftriaxone Sodium 1 gm/ (Sodium Chloride) 50 mls @ 100 mls/hr IVPB Q24HR PENDING SALE TO [facility]; Protocol Last Admin: 11/05/21 08:26 Dose: 100 mls/hr Miscellaneous Information (Pneumonia Protocol Util[facility] 1 each PO ONCE PRN PRN Reason: Per Protocol Montelukast Sodium (Montelukast 10 Mg Tab) 10 mg PO HS PENDING SALE TO [facility] Last Admin: 11/04/21 20:07 Dose: 10 mg Pantoprazole Sodium (Pantoprazole 40 Mg Tablet) 40 mg PO AC-BRKFST PENDING SALE TO [facility] Last Admin: 11/05/21 08:26 Dose: 40 mg Prednisone (Prednisone 20 Mg Tab) 40 mg PO DAILY PENDING SALE TO [facility] PHYSICAL EXAMINATION: GENERAL: The patient is alert and oriented x4, Well developed, well nourished. HEENT: PERRLA. EOMI. no scleral icterus. No conjunctival pallor. Normocephalic, atraumatic. No pharyngeal erythema. No thyromegaly. CARDIOVASCULAR: S1 and S2 muffled PULMONARY: diminished breath sounds bilaterally with course rhonchi and increased inspiratory and expiratory wheezing noted. ABDOMEN: soft. nontender on exam. non-distended, normoactive bowel sounds. No palpable organomegaly. MUSCULOSKELETAL: No joint swelling or deformity. EXTREMITIES: No cyanosis, clubbing, or pedal edema. NEUROLOGICAL: Gross neurological examination did not reveal any focal deficits. SKIN: No rashes. Assessment: Right middle lung pneumonia with failure of outpatient treatment Acute hypoxic respiratory failure secondary to above COPD Hyponatremia Hypertension Bronchial Asthma, acute exacerbation history of psoriasis Multiple medical issues GI prophylaxis DVT prophylaxis Plan: Recommend to continue with current medications and management with pulmonary following. Patient is continued on breathing inhalational treatment and IV steroids and also IV antibiotics and continues with dyspnea and frequent coughing spells. IV steroids being transitioned oral prednisone and patient is being continued on DuoNeb's and will transition antibiotics on discharge to Levaquin and a prednisone taper. Patient will need outpatient follow-up with pulmonary in the next 1-2 weeks. Patient continues on 3 L oxygen and will require this on discharge to manage COPD. Social work following and prescription provided and working on obtaining home oxygen. Recommend continue with incentive spirometer use at least 10 times every hour while awake. Due to multiple medical issues, prognosis is guarded. Possible discharge in 24 hours. The impression and plan of care has been dictated by Kinza Wallace, Nurse Practitioner as directed. Dr. Marcello MD I have performed a history and examination and MDM of this patient, discussed the same with the dictator, and agree with the dictator's assessment and plan as written ,documented as a scribe. Based on total visit time, I have performed more than 50% of the visit. Objective - Vital Signs Vital signs: Vital Signs Temp 97.6 F 11/05/21 13:35 Pulse 82 11/05/21 15:21 Resp 18 11/05/21 15:21 BP 154/85 11/05/21 13:35 Pulse Ox 92 L 11/05/21 13:35 FiO2 Intake & Output 11/04/21 11/05/21 11/05/21 18:59 06:59 18:59 Intake Total 592 592 Balance 592 592 Intake: Oral 592 592 Other: Voiding Method Toilet Toilet Toilet # Voids 3 2 - Labs CBC & Chem 7: 11/05/21 06:01 11/05/21 06:01 Labs: Abnormal Lab Results - Last 24 Hours (Table) 11/05/21 11/05/21 Range/Units 06:01 06:01 WBC 18.7 H (3.8-10.6) k/uL Neutrophils # (Manual) 14.00 H (1.3-7.7) k/uL Myelocytes # (Manual) 0.37 H (0) k/uL Sodium 132 L (137-145) mmol/L Chloride 94 L (98-107) mmol/L Carbon Dioxide 32 H (22-30) mmol/L BUN 19 H (7-17) mg/dL Glucose 123 H (74-99) mg/dL Microbiology - Last 24 Hours (Table) 10/31/21 02:00 Blood Culture - Preliminary Blood No Growth after 120 hours 10/31/21 02:15 Blood Culture - Preliminary Blood No Growth after 120 hours 11/03/21 19:59 Gram Stain - Preliminary Sputum Sputum Culture - Preliminary
[2021-11-05] MEDS: MONTELUKAST 10 MG TAB PO SCH (20:14)
[2021-11-06] MEDS: HEPARIN SODIUM,PORCINE/PF 5,000 UNIT/0.5 ML SYRINGE SQ SCH (06:39)
[2021-11-06] MEDS: amLODIPine 10 MG TAB PO SCH (06:41)
[2021-11-06] MEDS: PANTOPRAZOLE 40 MG TABLET PO SCH (06:41)
[2021-11-06] MEDS: AZITHROMYCIN 500 MG TAB PO SCH (06:41)
[2021-11-06] MEDS: BUDESONIDE 1 MG/2 ML NEBU INHALATION SCH (07:34)
[2021-11-06] MEDS: FORMOTEROL FUMARATE 20 MCG/2 ML NEBU INHALATION SCH (07:34)
[2021-11-06] MEDS: IPRATROPIUM-ALBUTEROL 3 ML NEB INHALATION SCH ×2 (07:34→11:42)
[2021-11-06] MEDS ORDERED: predniSONE 20 MG TAB PO SCH (09:00)
[2021-11-06 09:22] VITALS: RESP 17
--- NOTE | 2021-11-06 12:23 | P.PN ---
Subjective Progress Note Date: 11/06/21 Principal diagnosis: Shortness of breath This is a 61-year-old female patient, an occasional smoker, who comes into the hospital because of worsening shortness of breath and cough and congestion is been going on for the past 1-2 weeks. The patient has been having increased cou gh and congestion and generalized weakness and fatigue and tiredness. Denies having any fever. She was seen on outpatient basis and she tested negative for COVID 19. No travel history. No sick contacts. The patient has been vaccinated for, 19. During this current admission, the patient a chest x-ray that showed multilobar pneumonia. The chest x-ray showed patchy opacities in the right upper lobe and midlung. The left lower lobe consistent with pneumonia. The blood work showed a white cell count of 18.4 with hemoglobin 13.0 and a platelet count of 195. Normal coagulation profile. Sodium level was 127 with a potassium level of 4.3 BUN is 11 creatinine of 0.9. COVID 19 testing was also negative. Troponin was also negative at 0.01. Total protein was 6.7, albumin was 3.9. The patient was admitted to the hospital and started on a combination of Rocephin and Zithromax. Note that the patient has history of bronchial asthma and the patient has been maintained on tudorza inhaler on outpatient basis. She is also on Singulair 10 mg by mouth daily she has a nebulizer which she got DuoNeb nebulized treatment [id number]. She also uses pro-air rescue inhaler on an as-needed basis. 11/01/2021, the patient is feeling well. The patient is no specific complaints. The patient on IV antibiotics regarding the bilateral pneumonia and the infiltrates in the left lung base is improving and the right upper lobe consolidation is also improving. Pro-calcitonin level was elevated at 1.3. The patient remains on a, this Rocephin and Zithromax. Blood cultures negative for now. Meanwhile, the repeat blood work shows a white cell count 20.0 with a hemoglobin of 11.9 and a sodium level of 134. BUN is at 11 with a creatinine of 0.6. Legionella urine antigen was negative. 11/02/2021, the patient is doing well. No specific complaints. Pneumonia is being treated and the patient has a multilobar pneumonia. The patient remains on examination Rocephin and Zithromax. The patient remains on IV Solu-Medrol. Cultures are negative including Legionella urine antigen. Blood cultures also negative. 11/03/2021, the patient is being being treated for multilobar pneumonia. He is clinically improving. No new complaints. Nevertheless, the patient remains bronchospastic and wheezy in her chest remains tight. She remains on a combination of Rocephin and azithromycin she is also on IV Solu-Medrol. She is receiving DuoNeb nebulized treatment [id number]. No chest pain. No other new complaints otherwise for now. On 11/04/2021 patient seen in follow-up on medical surgical floor. She is alert, in no acute distress, remains on 3 L of oxygen, pulse ox is 96-98%, she is sitting up in a recliner, denies any chest discomfort, however her voice is hoarse, and she is dyspneic with exertion. Afebrile, vital signs have been stable, remains on azithromycin and Rocephin for antibiotic coverage. Sputum culture has been sent, and pending, blood cultures are negative. White blood cell count is 20.9, hemoglobin is 14, sodium is 132, potassium is 4.2, chloride is 94, BUN is 17, creatinine 0.58. Legionella urine antigen was negative, mycoplasma pneumonia IgG was 2.29, and mycoplasma pneumonia IgM was 0.30. Patient remains on IV steroids, and nebulized bronchodilators. On 11/05/2021 patient seen in follow-up on medical surgical floor. Patient states she is feeling better, and her chest x-ray shows improving inferior lateral right upper lung consolidation and left basilar acute infiltrate. No hemoptysis, no chest pain. White blood cell count is improving, and is down to 18.7, hemoglobin is 13.2, sodium is 132, potassium is 4.3, chloride is 94, CO2 is 32, BUN is 19, creatinine 0.61. Patient continues on azithromycin and Rocephin. Blood and sputum cultures have shown no growth thus far. Patient has been ambulating in the room, tolerating activity well. On the 11/06/2021 patient seen in follow-up. She is on 3 L of oxygen pulse ox is 93-97%, she continues on azithromycin and Rocephin, IV steroids and bronchodilators. Clinically improving, she's had no acute events overnight, she has been ambulating in the room. She was cleared for discharge home yesterday however was kept another day to further optimize her medical condition. Today's labs have been reviewed, with a total continence improving and is down to 18.7, hemoglobin is 13.2, sodium is 132, potassium is 4.3, chloride is 94, CO2 is 32, BUN is 19, creatinine 0.61 Objective - Vital Signs Vital signs: Vital Signs Temp 98.4 F 11/06/21 08:00 Pulse 82 11/06/21 11:53 Resp 17 11/06/21 08:00 BP 145/84 11/06/21 08:00 Pulse Ox 93 L 11/06/21 08:00 FiO2 Intake & Output 11/05/21 11/06/21 11/06/21 18:59 06:59 18:59 Intake Total 888 50 Output Total 100 Balance 888 -100 50 Intake: Intake, IV Titration 50 Amount cefTRIAXone 1 gm In 50 Sodium Chloride 0.9% 50 ml @ 100 mls/hr IVPB Q24HR [facility] Rx#:[id number] Oral 888 Output: Urine 100 Other: Voiding Method Toilet Toilet # Voids 3 1 - Exam GENERAL EXAM: Alert, very pleasant, 61-year-old white female on 3 L of oxygen pulse ox of 96-98% comfortable in no apparent distress. HEAD: Normocephalic/atraumatic. EYES: Normal reaction of pupils, equal size. Conjunctiva pink, sclera white. NOSE: Clear with pink turbinates. THROAT: No erythema or exudates. NECK: No masses, no JVD, no thyroid enlargement, no adenopathy. CHEST: No chest wall deformity. Symmetrical expansion. LUNGS: Equal air entry with scattered rhonchi and crackles CVS: Regular rate and rhythm, normal S1 and S2, no gallops, no murmurs, no rubs ABDOMEN: Soft, nontender. No hepatosplenomegaly, normal bowel sounds, no guarding or rigidity. EXTREMITIES: No clubbing, no edema, no cyanosis, 2+ pulses and upper and lower extremities. MUSCULOSKELETAL: Muscle strength and tone normal. SPINE: No scoliosis or deformity SKIN: No rashes CENTRAL NERVOUS SYSTEM: Alert and oriented -3. No focal deficits, tone is normal in all 4 extremities. PSYCHIATRIC: Alert and oriented -3. Appropriate affect. Intact judgment and insight. - Labs CBC & Chem 7: 11/05/21 06:01 11/05/21 06:01 Labs: Microbiology - Last 24 Hours (Table) 11/03/21 19:59 Gram Stain - Final Sputum Sputum Culture - Final 10/31/21 02:15 Blood Culture - Final Blood No Growth after 144 hours 10/31/21 02:00 Blood Culture - Final Blood No Growth after 144 hours Assessment and Plan Plan: Assessment: #1. Acute multilobar pneumonia, bilateral, bacterial, possibly community acquired. COVID-19 PCR, influenza A and B, Legionella urine antigen were negative, mycoplasma pneumonia IgG is elevated, IgM is negative #2. Acute hypoxic respiratory failure related to the above #3. Acute exacerbation of chronic bronchial asthma, unspecified #4. History of smoking #5. Hyponatremia, consider pneumonia related to SIADH, improved #6. Suspected COPD, severity is unknown Plan: No acute events overnight Wean FiO2, obtain home oxygen assessment Continue DuoNeb Tudorza, prednisone taper She will finish antibiotic therapy with Levaquin for 5 more days Outpatient follow-up with Dr. Alejandre in the office in 7-10 days I have personally seen and examined the patient, performed the documentation and the assessment and plan as written. Number of minutes spent on the visit: [10] Time with Patient: Less than 30
[2021-11-06 14:15] VITALS: BP 120/69; PULSE 67; TEMP 98.3
--- NOTE | 2021-11-06 19:04 | P.DS ---
Providers Date of admission: 10/31/21 03:15 Expected date of discharge: 11/06/21 Attending physician: Wilman Sparks Consults: 10/31/21 03:15 Consult Physician Routine Consulting Provider: Markus Alejandre Consult Reason/Comments: copd,hypoxia Do you want consulting provider notified?: Yes Primary care physician: Wilman Sparks [facility] Course: Final Diagnosis Right middle lung pneumonia with failure of outpatient treatment Acute hypoxic respiratory failure secondary to above COPD Hyponatremia Hypertension Bronchial Asthma, acute exacerbation history of psoriasis GI prophylaxis DVT prophylaxis Discharge disposition Patient is being discharged in a stable condition with guarded prognosis to home with continued home care. Patient will follow-up with Dr. Larson and oncology in the outpatient setting upon discharge. Patient is to follow up with pulmonary as scheduled. Patient will resume prednisone taper and finish a course of Augmentin bid for one week and pulmonary follow up prior to resuming chemo. Total time taken is greater than 35 minutes. Hospital course This is a 61-year-old female who was recently admitted with shortness of breath, cough and progressively getting worse. Patient found to have extensive pneumonia and COPD acute exacerbation. Patient requiring oxygen supplemental for home at 3L and will need close outpatient follow up with pulmonary on discharge. Patient will continue abx and pred taper along with breathing inhalational treatments. Patient encouraged to continue IS use at home at least 10 times per hour while awake and avoiding tobacco use or exposure. Currently no reports of chest pain, worsening shortness of breath, or palpitations. Patient is afebrile. No reports of nausea or vomiting and patient is tolerating diet. Patient will be discharged home today. guarded prognosis. Physical exam: Gen: This is a 61 year old female, awake alert and oriented x3, well developed, well nourished HEENT: Head is atraumatic, normocephalic. Pupils equal, round. Sclerae is anicteric. NECK: Supple. No JVD. No lymphadenopathy. No thyromegaly. LUNGS: diminished breath sounds bilaterally with continued inspiratory and expiratory Wheezing and course rhonchi. No intercostal retractions. HEART: Regular rate and rhythm. No murmur. ABDOMEN: Soft. Bowel sounds are present. No masses. No tenderness. EXTREMITIES: No pedal edema. No calf tenderness. NEUROLOGICAL: Patient is awake, alert and oriented x3. Cranial nerves 2 through 12 are grossly intact. Please refer to medication reconciliation sheet for a list of medications. The impression and plan of care has been dictated by Kinza Wallace, Nurse Practitioner as directed. Dr. Erin MD I have performed a history and examination and MDM of this patient, discussed the same with the dictator, and agree with the dictator's assessment and plan as written ,documented as a scribe. Based on total visit time, I have performed more than 50% of the visit. Patient Condition at Discharge: Fair Plan - Discharge Summary Discharge Rx Participant: No New Discharge Prescriptions: New Ipratropium-Albuterol Nebulize [Duoneb 0.5 mg-3 mg/3 ml Soln] 3 ml INHALATION RT-QID 30 Days #90 each amLODIPine [Norvasc] 10 mg PO DAILY 30 Days #30 tab Levofloxacin [Levaquin] 500 mg PO DAILY 5 Days #5 tab predniSONE 0 mg PO DIRECTED 16 Days #40 tab Continue Albuterol Sulfate [Proair Hfa] 2 puff INHALATION RT-Q6H PRN PRN Reason: Shortness Of Breath Ipratropium-Albuterol Nebulize [Duoneb 0.5 mg-3 mg/3 ml Soln] 3 ml INHALATION RT-QID PRN PRN Reason: Shortness Of Breath Montelukast [Singulair] 10 mg PO HS Aclidinium [place] [Tudorza Pressair] 1 puff INHALATION RT-BID Discharge Medication List Albuterol Sulfate [Proair Hfa] 2 puff INHALATION RT-Q6H PRN 09/20/13 [History] Aclidinium [place] [Tudorza Pressair] 1 puff INHALATION RT-BID 10/31/21 [History] Ipratropium-Albuterol Nebulize [Duoneb 0.5 mg-3 mg/3 ml Soln] 3 ml INHALATION RT-QID PRN 10/31/21 [History] Montelukast [Singulair] 10 mg PO HS 10/31/21 [History] Levofloxacin [Levaquin] 500 mg PO DAILY 5 Days #5 tab 11/05/21 [Rx] predniSONE 0 mg PO DIRECTED 16 Days #40 tab 11/05/21 [Rx] Ipratropium-Albuterol Nebulize [Duoneb 0.5 mg-3 mg/3 ml Soln] 3 ml INHALATION RT-QID 30 Days #90 each 11/06/21 [Rx] amLODIPine [Norvasc] 10 mg PO DAILY 30 Days #30 tab 11/06/21 [Rx] Follow up Appointment(s)/Referral(s): Wilman Sparks DO [Primary Care Provider] - 1-2 days (no available at time of discharge. Please call to schedule appointment ) [facility],Equipment [NON-STAFF] - (Contact [facility] when you get home and they will deliver O2 concentrator) Markus Alejandre MD [STAFF PHYSICIAN] - 11/20/21 9:00 am (With Angie ) Patient Instructions/Handouts: COPD (Chronic Obstructive Pulmonary Disease) (DC), Community Acquired Pneumonia (DC) Activity/Diet/Wound Care/Special Instructions: Activity Limited until follow-up Follow-up with primary care provider on discharge Follow-up with pulmonary as discussed in one week Continue antibiotics until finished Continue prednisone taper Continue breathing inhalational treatments and inhalers Continue coughing and deep breathing along with incentive spirometer use at least 10 times every hour while awake Avoid cough medicine unless having difficulty sleeping at night and may use cough medicine at night Avoid any tobacco use or exposure Continue oxygen supplementation at 3 L via nasal cannula and strongly encourage pulmonary follow-up in 1-2 weeks Discharge Disposition: HOME SELF-CARE
== END 2021-11-06 14:29 | disposition home or self-care (01) | DRG 193 ==
LOC: EC 01:38 → 4SSUR 03:15
PROVIDERS: ADMIT Family Medicine; ATTEND Family Medicine
DX: J18.9 Pneumonia, unspecified organism (principal); J96.01 Acute respiratory failure with hypoxia; J44.0 Chronic obstructive pulmonary disease with (acute) lower respiratory infection; J44.1 Chronic obstructive pulmonary disease with (acute) exacerbation; E22.2 Syndrome of inappropriate secretion of antidiuretic hormone; Z20.822 Contact with and (suspected) exposure to COVID-19; I10 Essential (primary) hypertension; F17.200 Nicotine dependence, unspecified, uncomplicated; Z79.899 Other long term (current) drug therapy; Z79.52 Long term (current) use of systemic steroids; Z99.81 Dependence on supplemental oxygen; Z88.0 Allergy status to penicillin
CPT/HCPCS: 36415; 71045; 71046; 80048; 80053; 83605; 83735; 83880; 84145; 84484; 85025; 85610; 85730; 86738; 87040; 87070; 87205; 87449; 87502; 87635; 94640; 94644; 94760; 96365; 96366; 96368; 96375; 99291

== ENCOUNTER → 2023-04-07 | Outpatient (CLI) | payer BC, OTHER ==
--- NOTE | 2023-04-07 08:47 | CTL ---
EXAMINATION TYPE: CT Low Dose Lung DATE OF EXAM ORDERED: 04/07/2023 HISTORY: Long-term tobacco use. Lung cancer screening CT DLP: 89.[address] CTDI: 2.4 mGy Automated exposure control for dose reduction was used. SCREENING VISIT: Baseline COMPARISON: None TECHNIQUE: Low dose computed tomography scan was performed through the chest at 1 mm thick sections a nd reconstructed images in multiple planes at 1 mm and [address] DIAGNOSTIC QUALITY: Satisfactory FINDINGS: LUNG NODULES: Present, detailed below: Incidental 2 to 3 mm benign calcified nodule or granuloma right lower lobe axial image 214. No signif icant greater than 5 mm noncalcified pulmonary nodules. LUNGS: COPD: Severity: Mild Fibrosis: Severity: None Lymph nodes: None Other findings: None RIGHT PLEURAL SPACE: Effusion: None Calcification: None Thickening: None Pneumothorax: None LEFT PLEURAL SPACE: Effusion: None Calcification: None Thickening: None Pneumothorax: None HEART: Heart Size: Normal Coronary Calcification: Mild Pericardial Effusion: None OTHER FINDINGS: Upper abdomen: None Bony thorax: Noneht scoliotic curvature. SuNonelaviculaNonegion: None Oth None IMPRESSION: No significant greater than 5 mm non[address] pulmonary nodules. CT LUNG RAD AND CT ST RECOMMENDATION: 2-benign S Modifier (other clinically s ificant findings): Non-
== END | disposition home or self-care (01) ==
LOC: RADCTMAIN 07:45
PROVIDERS: ATTEND Internal Medicine
DX: Z12.2 Encounter for screening for malignant neoplasm of respiratory organs (principal); F17.210 Nicotine dependence, cigarettes, uncomplicated
CPT/HCPCS: 71271

== ENCOUNTER 2023-05-06 09:04 | Day surgery (SDC) | payer BC, OTHER ==
[2023-04-29 12:39] VITALS: BMI 29.2
--- NOTE | 2023-05-06 07:48 | P.GSHP ---
History of Present Illness H&P Date: 05/06/23 CHIEF COMPLAINT: Colon screen HISTORY OF PRESENT ILLNESS: The patient is a 63-year-old female who presents for colon screen. Lower endoscopy was offered for further evaluation and management. PAST MEDICAL HISTORY: Please see list. PAST SURGICAL HISTORY: Please see list. MEDICATIONS: Please see list. ALLERGIES: Please see list. SOCIAL HISTORY: No illicit drug use FAMILY HISTORY: No reports of Crohn disease or ulcerative colitis. REVIEW OF ORGAN SYSTEMS: CONSTITUTIONAL: No reports of fevers or chills. PHYSICAL EXAM: VITAL SIGNS: Stable GENERAL: Well-developed pleasant in no acute distress. HEENT: No scleral icterus. Extraocular movements grossly intact. Moist buccal mucosa. NECK: Supple without lymphadenopathy. CHEST: Unlabored respirations. Equal bilateral excursions. CARDIOVASCULAR: Regular rate and rhythm. Distal 2+ pulses. ABDOMEN: Soft, nontender, nondistended. MUSCULOSKELETAL: No clubbing, cyanosis, or edema. ASSESSMENT: 1. Colon screen. PLAN: 1. Recommend proceeding with a lower endoscopy Past Medical History Past Medical History: Asthma, COPD, Hyperlipidemia, Skin Disorder Additional Past Medical History / Comment(s): PSORIASIS,RECTAL PROLAPSE History of Any Multi-Drug Resistant Organisms: None Reported Past Surgical History: Section, Tubal Ligation Additional Past Surgical History / Comment(s): rectocele repair. Past Anesthesia/Blood Transfusion Reactions: No Reported Reaction, Motion Sickness Smoking Status: Current every day smoker - Past Family History Father Family Medical History: No Reported History Medications and Allergies Home Medications Medication Instructions Recorded Confirmed Type Montelukast [Singulair] 10 mg PO HS 10/31/21 04/29/23 History Albuterol Inhaler [Ventolin Hfa 1 - 2 puff INHALATION Q6H PRN 04/29/23 04/29/23 History Inhaler] Albuterol Nebulized [Ventolin 2.5 mg INHALATION Q6H PRN 04/29/23 04/29/23 History Nebulized] Fluticasone/Umeclidin/Vilanter 1 puff INHALATION HS 04/29/23 04/29/23 History [Trelegy Ellipta 200-62.5-25] Rosuvastatin Calcium 5 mg PO 1700 04/29/23 04/29/23 History Allergies Allergy/AdvReac Type Severity Reaction Status Date / Time Penicillins AdvReac Nausea & Verified 04/29/23 11:26 Vomiting & Diarrhea
[~2023-05-06 09:04] MED LIST: LACTATED RINGERS 1,000 ML IV SCH
[2023-05-06 09:52] VITALS: TEMP 97.7
[2023-05-06] MEDS ORDERED: PROPOFOL 10 MG/ML 20 ML VIAL IV ONE (10:20)
--- NOTE | 2023-05-06 11:02 | P.PCN ---
Date of Procedure: 05/06/23 Description of Procedure: PREOPERATIVE DIAGNOSIS: Colonoscopy screening POSTOPERATIVE DIAGNOSIS: Tubular adenoma rectum Pandiverticulosis OPERATION: Colonoscopy to the ileocecal valve and appendiceal orifice, cecum Colonoscopy with hot snare polypectomy SURGEON: Steff Pena MD. ANESTHESIA: MAC. INDICATIONS: The patient is an 63-year-old female who presents for colonoscopy screening. Benefits and risks were described and informed consent was obtained. DESCRIPTION OF PROCEDURE: The patient had undergone Golytely prep. The patient had been brought into the operating room and laid in the left lateral decubitus position. After adequate intravenous sedation, the rectum was examined with 2% lidocaine jelly. No external hemorrhoids were encountered. The rectal tone was within normal limits. No lesions were palpated in the rectal vault. An Olympus colonoscope was advanced until the cecum, ileocecal valve and appendiceal orifice were clearly viewed. The prep was excellent. Sigmoid diverticulosis was encountered. Colonic polyps were found and removed. No evidence of focal colitis was found. Retroflexion of the scope demonstrated grade 1 internal hemorrhoids without active bleeding or inflammation. The colon was desufflated. The patient had tolerated the procedure well. Withdrawal time was over 6 minutes. FINDINGS: Aronchick preparation quality scale 1 (1-5) Internal hemorrhoids, grade 1 No external hemorrhoids No arteriovenous malformations. Pandiverticulosis Removal of 1 polyps: - Snare polypectomy 10 cm from the anal verge, 5 mm tubulovillous adenoma at rectum No focal colitis. RECOMMENDATIONS: Given severity of tubular adenomas, recommend repeat colonoscopy 3 years, 2026 Plan - Discharge Summary Discharge Rx Participant: No New Discharge Prescriptions: Continue Fluticasone/Umeclidin/Vilanter [Trelegy Ellipta 200-62.5-25] 1 puff INHALATION HS Albuterol Nebulized [Ventolin Nebulized] 2.5 mg INHALATION Q6H PRN PRN Reason: sob Rosuvastatin Calcium 5 mg PO 1700 Montelukast [Singulair] 10 mg PO HS Albuterol Inhaler [Ventolin Hfa Inhaler] 1 - 2 puff INHALATION Q6H PRN PRN Reason: sob Discharge Medication List Montelukast [Singulair] 10 mg PO HS 10/31/21 [History] Albuterol Inhaler [Ventolin Hfa Inhaler] 1 - 2 puff INHALATION Q6H PRN 04/29/23 [History] Albuterol Nebulized [Ventolin Nebulized] 2.5 mg INHALATION Q6H PRN 04/29/23 [History] Fluticasone/Umeclidin/Vilanter [Trelegy Ellipta 200-62.5-25] 1 puff INHALATION HS 04/29/23 [History] Rosuvastatin Calcium 5 mg PO 1700 04/29/23 [History] Follow up Appointment(s)/Referral(s): Steff Pena MD [STAFF PHYSICIAN] - As Needed Patient Instructions/Handouts: *Surgery [facility] - (Anesthesia) Discharge Instructions Outpatient Surgery Activity/Diet/Wound Care/Special Instructions: Colonoscopy 3 years, 2026 Discharge Disposition: HOME SELF-CARE
[2023-05-06 11:03] VITALS: BP 120/80; PULSE 65; RESP 16
== END 2023-05-06 12:07 | disposition home or self-care (01) ==
LOC: ORWHC2ENDO 09:04
PROVIDERS: ATTEND Surgery Plastic and Reconstructive Surgery
DX: Z12.11 Encounter for screening for malignant neoplasm of colon (principal); K62.1 Rectal polyp; K62.3 Rectal prolapse; J44.9 Chronic obstructive pulmonary disease, unspecified; E78.5 Hyperlipidemia, unspecified; F17.210 Nicotine dependence, cigarettes, uncomplicated; Z79.51 Long term (current) use of inhaled steroids; Z79.899 Other long term (current) drug therapy; Z88.0 Allergy status to penicillin; Z98.51 Tubal ligation status; Z98.890 Other specified postprocedural states
CPT/HCPCS: 88305; 45385; J2704

== ENCOUNTER 2024-02-21 00:09 | Emergency (ER) | payer BC, OTHER ==
[2024-02-21 00:15] VITALS: RESP 18
[2024-02-21 01:17] LABS: Basophils % (A) 0 %; Eosinophils # (A) 0.2 k/uL (0-0.7); Eosinophils % (A) 1 %; HCT 39.7 % (34.0-46.0); HGB 13.3 gm/dL (11.4-16.0); Lymphocytes # (A) 2.7 k/uL (1.0-4.8); Lymphocytes % (A) 24 %; MCH 30.5 pg (25.0-35.0); MCHC 33.5 g/dL (31.0-37.0); MCV 91.1 fL (80.0-100.0); Mean Platelet Volume 6.8; Monocytes # (A) 0.5 k/uL (0-1.0); Monocytes % (A) 5 %; Neutrophils # (A) 7.5 k/uL (1.3-7.7); Neutrophils % (A) 68 %; Platelet Count 282 k/uL (150-450); RBC 4.36 m/uL (3.80-5.40); RDW 13.2 % (11.5-15.5)
[2024-02-21 01:30] LABS: ALT 24 U/L (4-34); AST 25 U/L (14-36); African American GFR (CKD) >90 (>60 ml/min/1.73 sqM); Alkaline Phosphatase 70 U/L (38-126); Amylase 42 U/L (30-110); Anion Gap 0 mmol/L; Blood Urea Nitrogen 17 mg/dL (7-17); Calcium 8.8 mg/dL (8.4-10.2); Carbon Dioxide 30 mmol/L (22-30); Chloride 105 mmol/L (98-107); Glucose 140 mg/dL (74-99); Lipase 156 U/L (23-300); Non-African American GFR(CKD) >90 (>60 ml/min/1.73 sqM); Potassium 3.6 mmol/L (3.5-5.1); Sodium 135 mmol/L (137-145); Total Bilirubin 0.5 mg/dL (0.2-1.3); Total Protein 6.1 g/dL (6.3-8.2)
--- NOTE | 2024-02-21 02:04 | CT ---
EXAMINATION TYPE: CT abdomen pelvis wo con DATE OF EXAM: 02/21/2024 HISTORY: walking her dog and heard a pop, abdominal pain, hx of left inguinal hernia CT DLP: 543.3 mGycm. Automated Exposure Control for Dose Reduction was Utilized. TECHNIQUE: CT scan of the abdomen and pelvis is performed without oral or IV contrast. COMPARISON: NONE FINDINGS: Within the limitations of a non-contrast study, the following observations are made. LUNG BASES: No significant abnormality is appreciated. LIVER/GB: No significant abnormality is appreciated. PANCREAS: No significant abnormality is seen. SPLEEN: No significant abnormality is seen. ADRENALS: No significant abnormality is seen. KIDNEYS: No renal stones seen bilaterally. Prominent renal calyces without calyceal dilatation. No hy droureter. Findings suggest extrarenal pelvises. BOWEL: No abnormal small or large bowel dilatation. GENITAL ORGANS: Anteverted uterus. LYMPH NODES: No greater than 1cm abdominal or pelvic lymph nodes are appreciated. OSSEOUS STRUCTURES: Slight grade 1 retrolisthesis L2 on L3. Slight grade 1 anterolisthesis L3 on L4 a nd L4 on L5. Multilevel spurring in the thoracic spine. Multilevel facet arthropathy in the lower lum bar spine OTHER: Large left inguinal hernia containing fat and tiny mesenteric vessels axial image 135. Mild ca lcified plaque of the aorta extends into branch vessels. IMPRESSION: Confirmation of large left inguinal hernia containing tiny mesenteric vessels. [facility], , 02/21/2024 2:01 AM
--- NOTE | 2024-02-21 03:13 | ED ---
Abdominal Pain HPI - General Chief Complaint: Abdominal Pain Stated Complaint: ABD Pain Time Seen by Provider: 02/21/24 00:26 Source: patient Mode of arrival: ambulatory Limitations: no limitations - History of Present Illness Initial Comments: This patient is a 63-year-old woman who presents with complaint of left groin pain. The patient states that she felt a pop in her left groin when she was trying to hold her dog back as it was lunging. She denies vomiting. She has not had change in bowel movement. MD Complaint: abdominal pain -: hour(s) Location: LLQ Radiation: none Migration to: no migration Severity: moderate Quality: aching Consistency: constant Improves With: nothing Worsens With: nothing Associated Symptoms: denies other symptoms - Related Data Home Medications Medication Instructions Recorded Confirmed Montelukast [Singulair] 10 mg PO QAM 10/31/21 02/29/24 Albuterol Inhaler [Ventolin Hfa 1 - 2 puff INHALATION QID PRN 04/29/23 02/29/24 Inhaler] Albuterol Nebulized [Ventolin 2.5 mg INHALATION QID PRN 04/29/23 02/29/24 Nebulized] Fluticasone/Umeclidin/Vilanter 1 puff INHALATION HS 04/29/23 02/29/24 [Trelegy Ellipta 200-62.5-25] Rosuvastatin Calcium 5 mg PO QAM 04/29/23 02/29/24 L.acidoph,Paracasei, B.lactis 1 each PO DAILY 02/25/24 02/29/24 [Probiotic] Losartan Potassium 100 mg PO QAM 02/25/24 02/29/24 Previous Rx's Medication Instructions Recorded Acetaminophen Tab [Tylenol] 1,000 mg PO Q6HR PRN #30 tablet 03/01/24 Docusate [Colace] 100 mg PO BID #30 capsule 03/01/24 Ibuprofen [Motrin] 600 mg PO Q8HR PRN #30 tab 03/01/24 oxyCODONE HCL [OxyIR] 5 mg PO Q6H PRN 3 Days #12 tab 03/01/24 Allergies Allergy/AdvReac Type Severity Reaction Status Date / Time Penicillins AdvReac Nausea & Verified 02/29/24 08:17 Vomiting & Diarrhea Review of Systems ROS Statement: Those systems with pertinent positive or pertinent negative responses have been documented in the HPI. ROS Other: All systems not noted in ROS Statement are negative. Constitutional: Denies: fever, chills Respiratory: Denies: cough, dyspnea Cardiovascular: Denies: chest pain, palpitations, edema Gastrointestinal: Reports: abdominal pain. Denies: nausea, vomiting, diarrhea, constipation, melena, hematochezia Genitourinary: Denies: dysuria, frequency, hematuria Musculoskeletal: Denies: back pain Skin: Denies: rash Neurological: Denies: headache, weakness, numbness Past Medical History Past Medical History: Asthma, COPD, Hyperlipidemia, Skin Disorder Additional Past Medical History / Comment(s): PSORIASIS,RECTAL AND BLADDERPROLAPSE History of Any Multi-Drug Resistant Organisms: None Reported Past Surgical History: Section, Tubal Ligation Additional Past Surgical History / Comment(s): rectocele repair. Past Anesthesia/Blood Transfusion Reactions: No Reported Reaction, Motion Sickness Past Psychological History: No Psychological Hx Reported Smoking Status: Current every day smoker Past Alcohol Use History: Occasional Past Drug Use History: None Reported - Past Family History Father Family Medical History: No Reported History General Exam Limitations: no limitations General appearance: alert, in no apparent distress Head exam: Present: atraumatic, normocephalic Eye exam: Present: normal appearance. Absent: scleral icterus, conjunctival injection Neck exam: Present: normal inspection Respiratory exam: Present: normal lung sounds bilaterally. Absent: respiratory distress, wheezes, rales, rhonchi, stridor, accessory muscle use Cardiovascular Exam: Present: regular rate, normal rhythm, normal heart sounds. Absent: systolic murmur, diastolic murmur, rubs, gallop GI/Abdominal exam: Present: soft, tenderness, hernia (Left Inguinal area). Absent: distended, guarding, rebound, rigid, mass Extremities exam: Present: normal inspection, normal capillary refill. Absent: pedal edema, calf tenderness Back exam: Present: normal inspection. Absent: CVA tenderness (R), CVA tenderness (L) Neurological exam: Present: alert Skin exam: Present: warm, dry, intact, normal color. Absent: rash Course Vital Signs 02/21/24 02/21/24 00:13 03:15 Temperature 97.9 F 97.8 F Pulse Rate 89 77 Respiratory 18 18 Rate Blood Pressure 164/97 159/85 O2 Sat by Pulse 97 98 Oximetry Medical Decision Making - Medical Decision Making The patient had CT scan of the abdomen and pelvis that I interpreted to show left inguinal hernia, containing fat, no bowel. No evidence of bowel obstructio n. Patient presents with left inguinal hernia that she states appears to have started tonight. I did attempt a bedside reduction. I was able to reduce the hernia by approximately 10% of its size and then could not reduce it any further. The patient is sent for CT scan, with results as above. On evaluation, the patient states that she is not having any pain related. Given that her symptoms have resolved and there is no bowel contents in the hernia, patient would like to follow-up. She is given information for the surgeon and we discussed appropriate further care and follow-up as well as return parameters. Was pt. sent in by a medical professional or institution (, PA, NUTRITION WORKER, urgent ca re, hospital, or [facility]...) When possible be specific @ -[No] Did you speak to anyone other than the patient for history (EMS, parent, family, police, friend...)? What history was obtained from this source @ -[No] Did you review nursing and triage notes (agree or disagree)? Why? @ -[I reviewed and agree with nursing and triage notes] Were old charts reviewed (outside hosp., previous admission, EMS record, old EKG, old radiological studies, urgent care reports/EKG's, [facility] records)? Report findings @ -[No old charts were reviewed] Differential Diagnosis (chest pain, altered mental status, abdominal pain women, abdominal pain men, vaginal bleeding, weakness, fever, dyspnea, syncope, headache, dizziness, GI bleed, back pain, seizure, CVA, palpatations, mental health, musculoskeletal)? @ -[Differential Abdominal Pain Women: Appendicitis, Cholecystitis, diverticulosis, ischemic bowel, pancreatitis, hepatitis, UTI, gastroenteritis, AAA, incarcerated hernia, bowel obstruction, constipation, inflammatory bowel, hepatitis, peptic ulcer disease, splenic infarction, perforated viscus, vulvitis, ovarian torsion, PID, kidney stone, placenta abruption, this is not meant to be an all-inclusive list EKG interpreted by me (3pts min.). @ -[As above] X-rays interpreted by me (1pt min.). @ -[None done] CT interpreted by me (1pt min.). @ -[None done] U/S interpreted by me (1pt. min.). @ -[None done] What testing was considered but not performed or refused? (CT, X-rays, U/S, labs)? Why? @ -[None] What meds were considered but not given or refused? Why? @ -[None] Did you discuss the management of the patient with other professionals (professionals i.e. DrIva, PA, NUTRITION WORKER, lab, RT, psych nurse, health and social care teacher, cab supervisor, teacher, motor equipment commanding officer, medical case manager)? Give summary @ -[No] Was smoking cessation discussed for >3mins.? @ -[No] Was critical care preformed (if so, how long)? @ -[No] Were there social determinants of health that impacted care today? How? (Homelessness, low income, unemployed, alcoholism, drug addiction, transportation, low edu. Level, literacy, decrease access to med. care, retirement, rehab)? @ -[No] Was there de-escalation of care discussed even if they declined (Discuss DNR or withdrawal of care, Hospice)? DNR status @ -[No] What co-morbidities impacted this encounter? (DM, HTN, Smoking, COPD, CAD, Cancer, CVA, ARF, Chemo, Hep., AIDS, mental health diagnosis, sleep apnea, morbid obesity)? @ -[None] Was patient admitted / discharged? Hospital course, mention meds given and route, prescriptions, significant lab abnormalities, going to OR and other pertinent info. @ -[As above Undiagnosed new problem with uncertain prognosis? @ -[No] Drug Therapy requiring intensive monitoring for toxicity (Heparin, Nitro, Insulin, Cardizem)? @ -[No] Were any procedures done? @ -[No] Diagnosis/symptom? @ -[Acute inguinal hernia Acute, or Chronic, or Acute on Chronic? @ -[Acute Uncomplicated (without systemic symptoms) or Complicated (systemic symptoms)? @ -[Uncomplicated Side effects of treatment? @ -[No] Exacerbation, Progression, or Severe Exacerbation? @ -[No] Poses a threat to life or bodily function? How? (Chest pain, USA, PR, pneumonia, PE, COPD, DKA, ARF, appy, cholecystitis, CVA, Diverticulitis, Homicidal, Suicidal, threat to staff... and all critical care pts) @ -[No] - Lab Data Result diagrams: 02/21/24 01:05 02/21/24 01:05 Lab Results 02/21/24 02/21/24 02/21/24 Range/Units 01:05 01:05 01:05 WBC 11.0 H (3.8-10.6) k/uL RBC 4.36 (3.80-5.40) m/uL Hgb 13.3 (11.4-16.0) gm/dL Hct 39.7 (34.0-46.0) % MCV 91.1 (80.0-100.0) fL MCH 30.5 (25.0-35.0) pg MCHC 33.5 (31.0-37.0) g/dL RDW 13.2 (11.5-15.5) % Plt Count 282 (150-450) k/uL MPV 6.8 Neutrophils % 68 % Lymphocytes % 24 % Monocytes % 5 % Eosinophils % 1 % Basophils % 0 % Neutrophils # 7.5 (1.3-7.7) k/uL Lymphocytes # 2.7 (1.0-4.8) k/uL Monocytes # 0.5 (0-1.0) k/uL Eosinophils # 0.2 (0-0.7) k/uL Basophils # 0.0 (0-0.2) k/uL Sodium 135 L (137-145) mmol/L Potassium 3.6 (3.5-5.1) mmol/L Chloride 105 (98-107) mmol/L Carbon Dioxide 30 (22-30) mmol/L Anion Gap 0 mmol/L BUN 17 (7-17) mg/dL Creatinine 0.72 (0.52-1.04) mg/dL Est GFR (CKD-EPI)AfAm >90 (>60 ml/min/1.73 sqM) Est GFR (CKD-EPI)NonAf >90 (>60 ml/min/1.73 sqM) Glucose 140 H (74-99) mg/dL Plasma Lactic Acid Darrian 0.7 (0.7-2.0) mmol/L Calcium 8.8 (8.4-10.2) mg/dL Total Bilirubin 0.5 (0.2-1.3) mg/dL AST 25 (14-36) U/L ALT 24 (4-34) U/L Alkaline Phosphatase 70 (38-126) U/L Total Protein 6.1 L (6.3-8.2) g/dL Albumin 4.0 (3.5-5.0) g/dL Amylase 42 (30-110) U/L Lipase 156 (23-300) U/L Disposition Clinical Impression: Hernia Disposition: HOME SELF-CARE Condition: Good Instructions (If sedation given, give patient instructions): Inguinal Hernia (ED) Is patient prescribed a controlled substance at d/c from ED?: No Referrals: Wilman Sparks DO [Primary Care Provider] - 1-2 days Martin Dumont MD [STAFF PHYSICIAN] - 1-2 days
[2024-02-21 03:16] VITALS: BP 159/85; PULSE 77; TEMP 97.8
== END 2024-02-21 03:19 | disposition home or self-care (01) ==
LOC: EC 00:09
DX: K40.90 Unilateral inguinal hernia, without obstruction or gangrene, not specified as recurrent (principal); F17.200 Nicotine dependence, unspecified, uncomplicated; Z88.0 Allergy status to penicillin
CPT/HCPCS: 36415; 74176; 80053; 82150; 83605; 83690; 85025; 99284

== ENCOUNTER → 2024-02-23 | Outpatient (CLI) | payer BC, OTHER ==
[2024-02-23 16:01] LABS: HCT 41.2 % (37.2-46.3); HGB 13.6 g/dL (12.0-15.0); MCH 30.1 pg (27.0-32.0); MCV 91.2 FL (80.0-97.0); Mean Platelet Volume 9.1 FL (9.5-12.2); NRBC Per 100 WBC 0 X 10*3/uL (0.00-0.01); Platelet Count 289 X 10*3/uL (140-440); RBC 4.52 X 10*6/uL (4.10-5.20); RDW 13.2 % (11.5-14.5); WBC 8.33 X 10*3/uL (4.50-10.00)
== END | disposition home or self-care (01) ==
LOC: LABWHC1 08:13
PROVIDERS: ATTEND Surgery
CPT/HCPCS: 36415; 85027; 86850; 86900; 86901; 93005

== ENCOUNTER 2024-02-29 07:50 | Day surgery (SDC) | payer BC, OTHER ==
[2024-02-25 12:41] VITALS: BMI 27.8
[~2024-02-29 07:50] MED LIST changes: -LACTATED RINGERS 1,000 ML IV SCH; +LIDOCAINE 1% (10MG/ML) FOR IV START INTRADERMA PRN
[2024-02-29] MEDS: IV FLUID CONTINUATION 1,000 ML IV ONE (08:13)
[2024-02-29] MEDS: DEXAMETHASONE SOD PHOSPHATE 4 MG/ML 1 ML VIAL IV ONE (08:44)
[2024-02-29] MEDS: ONDANSETRON 4 MG/2 ML VIAL IVP ONE (08:44)
[2024-02-29] MEDS: ACETAMINOPHEN TAB 500 MG TAB PO PRN (08:44)
[2024-02-29] MEDS: MIDAZOLAM 2 MG/2 ML VIAL IV ONE (09:03)
[2024-02-29] MEDS: HEPARIN SODIUM,PORCINE 5,000 UNIT/ML 1 ML VIAL SQ PRN (09:16)
[2024-02-29] MEDS ORDERED: ePHEDrine 50 MG/ML 1 ML VIAL ONE (09:38)
[2024-02-29] MEDS ORDERED: SUCCINYLCHOLINE CHLORIDE 200 MG/10 ML VIAL IV ONE (09:38)
[2024-02-29] MEDS ORDERED: SODIUM CHLORIDE 0.9% (PF) 10 ML VIAL ONE (09:38)
[2024-02-29] MEDS ORDERED: MIDAZOLAM 2 MG/2 ML VIAL ONE (09:38)
[2024-02-29] MEDS ORDERED: DEXAMETHASONE SOD PHOSPHATE 4 MG/ML 1 ML VIAL ONE (09:38)
[2024-02-29] MEDS ORDERED: NEOSTIGMINE 1 MG/ML 10 ML VIAL ONE (09:38)
[2024-02-29] MEDS ORDERED: fentaNYL (PF) 50 MCG/ML 2 ML AMP ONE (09:38)
[2024-02-29] MEDS ORDERED: HYDROmorphone (PF) 1 MG/ML ONE (09:38)
[2024-02-29] MEDS ORDERED: KETAMINE HCL IN 0.9 % NACL 50 MG/5 ML SYRINGE ONE (09:38)
[2024-02-29] MEDS ORDERED: PROPOFOL 10 MG/ML 20 ML VIAL IV ONE (09:38)
[2024-02-29] MEDS ORDERED: ROPIVACAINE 5 MG/ML 30 ML VIAL ONE (09:38)
[2024-02-29] MEDS ORDERED: GLYCOPYRROLATE 0.2 MG/ML 2 ML VIAL ONE (09:38)
[2024-02-29] MEDS ORDERED: ROCURONIUM 10 MG/ML (5 ML VIAL) IV ONE (09:38)
[2024-02-29] MEDS ORDERED: LIDOCAINE 1% INJ 10MG/ML (20 ML MDV) ONE (09:38)
[2024-02-29] MEDS: LIDOCAINE 1%-EPI 1:100,000 20 ML VIAL SQ ONE ×2 (09:40)
[2024-02-29] MEDS: LACTATED RINGERS 1,000 ML IV ONE (10:51)
[2024-02-29] MEDS ORDERED: NALOXONE 0.4 MG/ML 1 ML VIAL IV PRN (11:03)
[2024-02-29] MEDS ORDERED: ONDANSETRON 4 MG/2 ML VIAL IVP PRN (11:03)
[2024-02-29] MEDS ORDERED: HYDROmorphone 0.5 MG/0.5 ML SYRINGE IVP PRN (11:03)
[2024-02-29] MEDS ORDERED: HYDROmorphone 1 MG/ML 1 ML SYRINGE IVP PRN (11:03)
[2024-02-29] MEDS ORDERED: ACETAMINOPHEN TAB 325 MG TAB PO PRN (11:03)
--- NOTE | 2024-02-29 11:03 | P.OP ---
Date of Procedure: 02/29/24 Preoperative Diagnosis: Left inguinal hernia Postoperative Diagnosis: Incarcerated left inguinal hernia with omentum Procedure(s) Performed: Laparoscopic robotic repair of left inguinal hernia Partial omentectomy Anesthesia: DAMION Surgeon: Martin Dumont Estimated Blood Loss (ml): 100 Pathology: other (Omentum) Condition: stable Disposition: PACU Description of Procedure: The patient's placed on the operating table in the supine position. The patient received general anesthesia. The patient had a large incarcerated left inguinal hernia The patient's abdomen was prepped and draped in usual sterile fashion. The skin was anesthetized 1% local Xylocaine at the incision sites. Using an 11 blade a skin incision was made at the umbilicus. The fascia was grasped with a Gary and then the peritoneal cavity was entered with the Veress needle. Position of the Veress needle was confirmed with a positive drop test. After adequate insufflation a 5 mm trocar was placed into the peritoneal cavity. The Laparoscope was placed the peritoneal cavity. And a robotic 8 mm trocar was placed in the right lateral position and then another 8 mm robotic trochars placed in the left lateral position. The original 5 mm trocar was exchanged for a 12 mm trocar. The patient was placed in reverse Trendelenburg and then the patient was docked to the robot. The omentum was seen entering the hernia. The omentum could not be reduced due to the size of the hernia. At this point a incision was made over the left groin and then the hernia sac was divided off subtenons tissue. The hernia sac was opened. The incarcerated omentum was transected with electrocautery sent pathology. At this point the remaining omentum was reduced into the pleural cavity. Next the peritoneum over top of the hernia was incised and then using blunt and sharp dissection and electrocautery the hernia sac was dissected free from the floor of the inguinal canal. The hernia sac was completely reduced into the peritoneal cavity. And then using the Pro supervisor microwave mesh the hernia was repaired. The peritoneum was then sutured with 20V lock suture. The patient was then undocked the robot. The needle was withdrawn from the peritoneal cavity. The umbilical trocar site was closed with 0 Ethibond suture. The skin was closed interrupted 3-0 Monocryl suture. Dermabond dressing was applied. Patient was sent to recovery in stable condition.
[2024-02-29] MEDS: HYDROmorphone 0.5 MG/0.5 ML SYRINGE IVP PRN (12:20)
[2024-02-29] MEDS: LACTATED RINGERS 1,000 ML IV SCH ×2 (13:24→15:33)
[2024-02-29] MEDS: droPERidol 5 MG/2 ML VIAL IVP ONE (13:52)
[2024-02-29] MEDS: HYDROcodone/APAP 5-325MG 1 EACH TAB PO PRN (13:57)
[2024-02-29] MEDS: IPRATROPIUM 0.5 MG/2.5 ML NEBU INHALATION SCH (15:45)
[2024-02-29] MEDS: KETOROLAC 15 MG/ML 1 ML VIAL IVP SCH (17:52)
[2024-02-29] MEDS: SYMBICORT 160-4.5 MCG INHALER INHALATION SCH (18:22)
[2024-02-29] MEDS: HYDROmorphone 2 MG/ML 1 ML SYRINGE IVP PRN (21:25)
--- NOTE | 2024-02-29 23:55 | P.CONS ---
History of Present Illness - Reason for Consult Consult date: 02/29/24 Medical management - Chief Complaint Left inguinal hernia repair - History of Present Illness Patient is a 61-year-old female with known history of COPD, ongoing nicotine addiction, hypertension, hyperlipidemia, psoriasis presented to the hospital for left inguinal hernia repair. Patient was found to have incarcerated left inguinal hernia with omentum. Patient is status post laparoscopic robotic repair of left inguinal hernia. And partial omentectomy. Postoperatively patient was hypoxic requiring oxygen at 6 L via nasal cannula. Patient was admitted to hospital for further evaluation. Otherwise patient denied any complaints of chest pain. Denied any worsening shortness of breath. Patient did not use her inhaler/nebulizer today. Currently oxygen titrated down to 2 L via nasal cannula. No new complaints of fever or chills. No cough or sputum production. Denies leg swelling. Laboratory data is not available at this time Review of Systems Constitutional: Patient denies any fever or chills . No generalized weakness or weight loss. Abdomen: Patient denied nausea vomiting and diarrhea and abdominal pain. Cardiovascular: Patient denies any chest pain or short of breath no palpitations. Respiratory: patient denied any cough or sputum production. No shortness of breath Neurologic: Patient denied any numbness or tingling. no headache. Musculoskeletal: Patient denies any complaints of joint swelling or deformity. Skin: Negative Psychiatric: Negative Endocrine: No heat or cold intolerance. No recent weight gain. Genitourinary: No dysuria or hematuria. All other 14 point ROS negative except the above Past Medical History Past Medical History: Asthma, COPD, Hyperlipidemia, Hypertension, Skin Disorder Additional Past Medical History / Comment(s): PSORIASIS, UTERINE AND BLADDER PROLAPSE, varicose veins. History of Any Multi-Drug Resistant Organisms: None Reported Past Surgical History: Section, Tubal Ligation Additional Past Surgical History / Comment(s): Rectocele repair. Past Anesthesia/Blood Transfusion Reactions: No Reported Reaction Smoking Status: Current every day smoker - Past Family History Father Family Medical History: No Reported History Medications and Allergies Home Medications Medication Instructions Recorded Confirmed Type RX: Montelukast [Singulair] 10 mg PO QAM 10/31/21 02/29/24 History RX: Albuterol Inhaler [Ventolin 1 - 2 puff INHALATION QID PRN 04/29/23 02/29/24 History Hfa Inhaler] RX: Albuterol Nebulized [Ventolin 2.5 mg INHALATION QID PRN 04/29/23 02/29/24 History Nebulized] RX: Fluticasone/Umeclidin/Vilanter 1 puff INHALATION HS 04/29/23 02/29/24 History [Trelegy Ellipta 200-62.5-25] RX: Rosuvastatin Calcium 5 mg PO QAM 04/29/23 02/29/24 History L.acidoph,Paracasei, B.lactis 1 each PO DAILY 02/25/24 02/29/24 History [Probiotic] RX: Losartan Potassium 100 mg PO QAM 02/25/24 02/29/24 History Allergies Allergy/AdvReac Type Severity Reaction Status Date / Time Penicillins AdvReac Nausea & Verified 02/29/24 08:17 Vomiting & Diarrhea Physical Exam Vitals: Vital Signs Temp Pulse Pulse Pulse Resp BP Pulse Ox 02/29/24 13:30 98.0 F 56 L 16 129/80 98 02/29/24 13:00 66 16 118/60 97 02/29/24 12:45 60 16 117/62 97 02/29/24 12:30 63 16 115/62 97 02/29/24 12:15 63 16 134/61 97 02/29/24 12:00 72 16 114/59 97 02/29/24 11:47 61 16 114/59 97 02/29/24 11:30 57 L 16 127/61 97 02/29/24 11:15 58 L 16 127/61 97 02/29/24 11:08 97 F L 61 16 135/65 97 02/29/24 09:11 85 16 139/76 93 L 02/29/24 08:15 97.4 F L 88 16 123/85 97 Intake and Output 02/29/24 02/29/24 02/29/24 06:59 14:59 22:59 Intake Total 1230 Output Total 100 Balance 1130 Intake: IV 1050 Oral 180 Output: Estimated Blood Loss 100 Other: Weight 73.7 kg PHYSICAL EXAMINATION: Patient is lying in the bed comfortably, no acute distress, awake alert and oriented.. HEENT: Normocephalic. Neck is supple. Pupils reactive. Nostrils clear. Oral cavity is moist. Neck reveals no JVD, carotid bruits, or thyromegaly. CHEST EXAMINATION: Trachea is central. Symmetrical expansion. Lung otero clear to auscultation and percussion. CARDIAC: Normal S1, S2 with no gallops. No murmurs ABDOMEN: Soft. Bowel sounds normal. No organomegaly. No abdominal bruits. Extremities: reveal no edema. No clubbing or cyanosis Neurologically awake, alert, oriented x3 with well-coordinated movements. No focal deficits noted Skin: No rash or skin lesions. Psychiatric: Coperative. Nonsuicidal Musculoskeletal: No joint swelling or deformity. Normal range of motion. Assessment and Plan Assessment: Status post laparoscopic robotic repair of incarcerated left inguinal hernia postoperative day 0 Hypoxia likely postoperative improving. COPD not on home oxygen Ongoing nicotine addiction Hypertension Hyperlipidemia DVT prophylaxis and GI prophylaxis as per primary team Plan: Patient will be continued on oxygen supplementation titrate down to room air. Patient was started on albuterol inhalation 4 times daily as needed and continue with Symbicort. Continue with Singulair. Current with other blood pressure medications and ordered CBC and BMP tomorrow.. Encourage incentive spirometry. Further recommendations based on clinical course. Thank you kindly for your consult. Time with Patient: Greater than 30
[2024-03-01 03:13] LABS: Basophils # (A) 0.01 X 10*3/uL (0.00-0.10); Basophils % (A) 0.1 %; Eosinophils # (A) 0 X 10*3/uL (0.04-0.35); Eosinophils % (A) 0 %; HCT 37.1 % (37.2-46.3); HGB 12.2 g/dL (12.0-15.0); Lymphocytes # (A) 0.43 X 10*3/uL (0.90-5.00); Lymphocytes % (A) 5.4 %; MCH 30.3 pg (27.0-32.0); MCHC 32.9 g/dL (32.0-37.0); MCV 92.3 FL (80.0-97.0); Mean Platelet Volume 9.4 FL (9.5-12.2); Monocytes # (A) 0.06 X 10*3/uL (0.20-1.00); Monocytes % (A) 0.8 %; NRBC Per 100 WBC 0 X 10*3/uL (0.00-0.01); Neutrophils % (A) 93.3 %; Platelet Count 248 X 10*3/uL (140-440); RBC 4.02 X 10*6/uL (4.10-5.20); RDW 12.9 % (11.5-14.5); WBC 7.93 X 10*3/uL (4.50-10.00)
[2024-03-01 04:19] LABS: BUN/Creat Ratio 15.33 Ratio (12.00-20.00); Blood Urea Nitrogen 9.2 mg/dL (9.0-27.0); Calcium 8.7 mg/dL (8.7-10.3); Carbon Dioxide 22.1 mmol/L (21.6-31.8); Chloride 103 mmol/L (96-109); Glucose 168 mg/dL (70-110); Potassium 4.5 mmol/L (3.5-5.5); Sodium 137 mmol/L (135-145)
[2024-03-01 07:30] VITALS: BP 160/82; RESP 16; TEMP 97.8
[2024-03-01] MEDS: ENOXAPARIN 40 MG/0.4 ML SYRINGE SQ SCH (08:52)
[2024-03-01] MEDS: ATORVASTATIN 10 MG TAB PO SCH (08:53)
[2024-03-01] MEDS: LOSARTAN 50 MG TAB PO SCH (08:53)
[2024-03-01] MEDS: MONTELUKAST 10 MG TAB PO SCH (08:53)
[2024-03-01] MEDS: ALBUTEROL NEBULIZED 2.5 MG/3 ML INHALATION PRN (10:25)
[2024-03-01 10:35] VITALS: PULSE 72
--- NOTE | 2024-03-01 11:41 | P.ANPRN ---
Procedure Note - Anesthesia - Nerve Block Performed Bilateral Erector Spinae Single Time Out Performed: Yes Date of Procedure: 02/29/24 Procedure Start Time: : Procedure Stop Time: :07 Location of Patient: PreOp Indication: Acute Post-Operative Pain, Requested by Surgeon Sedation Type: Sedate with meaningful contact maintained Preparation: Sterile Prep Position: Prone Needle Types: Pajunk Needle Gauge: 21 Ultrasound used to visualize needle placement: Yes Ultrasound used to observe medication spread: Yes Blood Aspirated: No Pain Paresthesia on Injection Noted: No Resistance on Injection: Normal Image Stored and Saved: Yes Events: Uneventful and Well Tolerated (Ropivacaine 0.5% 15 cc plus normal saline 10 cc plus dexamethasone 4 mg given bilaterally at L1)
--- NOTE | 2024-03-01 11:52 | P.DS ---
Providers Expected date of discharge: 03/01/24 Attending physician: Martin Dumont Consults: 02/29/24 11:03 Consult Physician Routine Consulting Provider: Wilman Sparks Consult Reason/Comments: Medical management Do you want consulting provider notified?: Yes Primary care physician: Wilman Sparks Hospital Course: Discharge diagnosis 1. Incarcerated left inguinal hernia with omentum Hospital course This is a 63-year-old female with incarcerated left inguinal hernia with omentum. She is status post laparoscopic robotic repair of left inguinal hernia and partial omentectomy. Patient tolerated surgery well. Her pain is controlled. She is tolerating diet. She is having flatus. She is afebrile. She is ambulating. She is stable for discharge. Please refer to chart for further details. Physician [employer] Office Markup Clerk note has been reviewed by physician. Signing provider agrees with the documented findings, assessment, and plan of care. Patient Condition at Discharge: Stable Plan - Discharge Summary Discharge Rx Participant: No New Discharge Prescriptions: New Docusate [Colace] 100 mg PO BID #30 capsule oxyCODONE HCL [OxyIR] 5 mg PO Q6H PRN 3 Days #12 tab PRN Reason: Pain Ibuprofen [Motrin] 600 mg PO Q8HR PRN #30 tab PRN Reason: Pain Acetaminophen Tab [Tylenol] 1,000 mg PO Q6HR PRN #30 tablet PRN Reason: Pain Continue Fluticasone/Umeclidin/Vilanter [Trelegy Ellipta 200-62.5-25] 1 puff INHALATION HS Albuterol Nebulized [Ventolin Nebulized] 2.5 mg INHALATION QID PRN PRN Reason: Shortness Of Breath Rosuvastatin Calcium 5 mg PO QAM L.acidoph,Paracasei, B.lactis [Probiotic] 1 each PO DAILY Montelukast [Singulair] 10 mg PO QAM Albuterol Inhaler [Ventolin Hfa Inhaler] 1 - 2 puff INHALATION QID PRN PRN Reason: Shortness Of Breath Losartan Potassium 100 mg PO QAM Discharge Medication List Montelukast [Singulair] 10 mg PO QAM 10/31/21 [History] Albuterol Inhaler [Ventolin Hfa Inhaler] 1 - 2 puff INHALATION QID PRN 04/29/23 [History] Albuterol Nebulized [Ventolin Nebulized] 2.5 mg INHALATION QID PRN 04/29/23 [History] Fluticasone/Umeclidin/Vilanter [Trelegy Ellipta 200-62.5-25] 1 puff INHALATION HS 04/29/23 [History] Rosuvastatin Calcium 5 mg PO QAM 04/29/23 [History] L.acidoph,Paracasei, B.lactis [Probiotic] 1 each PO DAILY 02/25/24 [History] Losartan Potassium 100 mg PO QAM 02/25/24 [History] Acetaminophen Tab [Tylenol] 1,000 mg PO Q6HR PRN #30 tablet 03/01/24 [Rx] Docusate [Colace] 100 mg PO BID #30 capsule 03/01/24 [Rx] Ibuprofen [Motrin] 600 mg PO Q8HR PRN #30 tab 03/01/24 [Rx] oxyCODONE HCL [OxyIR] 5 mg PO Q6H PRN 3 Days #12 tab 03/01/24 [Rx] Follow up Appointment(s)/Referral(s): Martin Dumont MD [STAFF PHYSICIAN] - 03/07/24 2:00 pm Patient Instructions/Handouts: Inguinal Hernia Repair (DC) Activity/Diet/Wound Care/Special Instructions: No driving while taking OxyIR No lifting over 10 pounds Shower daily. No soaking or tub baths for 2 weeks Very light activity until you are reevaluated at your follow up appointment with your surgeon Discharge Disposition: HOME SELF-CARE
--- NOTE | 2024-03-03 22:14 | P.PN ---
Subjective Progress Note Date: 03/01/24 Patient is a 61-year-old female with known history of COPD, ongoing nicotine addiction, hypertension, hyperlipidemia, psoriasis presented to the hospital for left inguinal hernia repair. Patient was found to have incarcerated left inguinal hernia with omentum. Patient is status post laparoscopic robotic repair of left inguinal hernia. And partial omentectomy. Postoperatively patient was hypoxic requiring oxygen at 6 L via nasal cannula. Patient was admitted to hospital for further evaluation. Otherwise patient denied any complaints of chest pain. Denied any worsening shortness of breath. Patient did not use her inhaler/nebulizer today. Currently oxygen titrated down to 2 L via nasal cannula. No new complaints of fever or chills. No cough or sputum production. Denies leg swelling. Laboratory data is not available at this time 4Patient is currently resting in the bed. Awake alert and oriented x 3. No complaints of chest pain or shortness of breath. Patient is on room air. No cough or sputum production. Denied any nausea or vomiting. Abdominal pain at the surgical site is much improved. No other acute overnight issues. Laboratory data reviewed. Patient is being discharged home today. Current medications reviewed. Objective - Vital Signs Vital signs: Vital Signs Temp 97.8 F 03/01/24 06:47 Pulse 72 03/01/24 10:34 Resp 16 03/01/24 06:47 BP 160/82 03/01/24 06:47 Pulse Ox 97 03/01/24 06:47 FiO2 - Exam PHYSICAL EXAMINATION: Patient is lying in the bed comfortably, no acute distress, awake alert and oriented.. HEENT: Normocephalic. Neck is supple. Pupils reactive. Nostrils clear. Oral cavity is moist. Neck reveals no JVD, carotid bruits, or thyromegaly. CHEST EXAMINATION: Trachea is central. Symmetrical expansion. Lung otero clear to auscultation and percussion. CARDIAC: Normal S1, S2 with no gallops. No murmurs ABDOMEN: Soft. Bowel sounds present. Surgical sites intact. Mild tenderness. No guarding or rigidity. No organomegaly. No abdominal bruits. Extremities: reveal no edema. No clubbing or cyanosis Neurologically awake, alert, oriented x3 with well-coordinated movements. No focal deficits noted Skin: No rash or skin lesions. Psychiatric: Coperative. Nonsuicidal Musculoskeletal: No joint swelling or deformity. Normal range of motion. - Labs CBC & Chem 7: 02/29/24 16:53 02/29/24 16:53 Assessment and Plan Assessment: Status post laparoscopic robotic repair of incarcerated left inguinal hernia postoperative day 1 Hypoxia likely postoperative. Titrated down to room air now.. COPD not on home oxygen Ongoing nicotine addiction Hypertension Hyperlipidemia DVT prophylaxis and GI prophylaxis as per primary team Plan: Patient is titrated down to room air. Continue with albuterol inhalation 4 times daily as needed and continue with Symbicort. Continue with Singulair. Current with other blood pressure medications. Follow with primary care physician in the next 3 to 5 days... Encourage incentive spirometry. Discharge medication reconciliation was done. Patient is being discharged home today. Thank you kindly for your consult.
== END 2024-03-01 12:03 | disposition home or self-care (01) ==
LOC: OR 07:50 → 5NMEDONC 11:08 → OR 03-01 12:03
PROVIDERS: ATTEND Surgery
DX: F10.90 Alcohol use, unspecified, uncomplicated (principal); K40.30 Unilateral inguinal hernia, with obstruction, without gangrene, not specified as recurrent; Z88.0 Allergy status to penicillin; Z87.891 Personal history of nicotine dependence
CPT/HCPCS: 49650; S2900; 64999; 80048; 85025; 88305; 94640

== ENCOUNTER → 2024-05-19 | Outpatient (CLI) | payer BC, OTHER ==
--- NOTE | 2024-05-19 15:43 | CTL ---
EXAMINATION TYPE: CT Low Dose Lung DATE OF EXAM ORDERED: 05/19/2024 COMPARISON: CT Low Dose Lung 04/07/2023 CLINICAL INDICATION: Female, 64 years old with history of CURRENT SMOKER Z12.2; PHH, PERSONAL HX OF N ICOTINE DEPENDENCE 1/2 PPD X 40 YEARS CURRENT SMOKER, Lung cancer screening, History of Smoking/tobac co use. TECHNIQUE: Low dose computed tomography scan was performed through the chest at 1 mm thick sections a nd reconstructed images in multiple planes at 1 mm and [address] DLP: 98.[address] CTDI: 2.6 mGy Automated exposure control for dose reduction was used. CT DIAGNOSTIC QUALITY: Satisfactory FINDINGS: Nodules: Stable right lower lobe 2 mm granuloma. No new or enlarging pulmonary nodules. LUNGS: COPD: Severity: Minimal Fibrosis: Severity: None Lymph nodes: None Other findings: None RIGHT PLEURAL SPACE: Effusion: None Calcification: None Thickening: None Pneumothorax: None LEFT PLEURAL SPACE: Effusion: None Calcification: None Thickening: None Pneumothorax: None HEART: Heart Size: Normal Coronary Calcification: Mild Pericardial Effusion: None OTHER FINDINGS: Upper abdomen: None Bony thorax: Minimal scoliotic curvature. Mild multilevel degenerative disc disease. Supraclavicular region: None Other: None IMPRESSION: No significant greater than 5 mm noncalcified pulmonary nodules. CT LUNG RAD AND CT CHEST RECOMMENDATION: Lung-Rad 2 Benign Appearance or Behavior: Continue annual sc reening with LDCT in 12 months. S Modifier (other clinically significant findings): None [facility], , 05/19/2024 3:41 PM
== END | disposition home or self-care (01) ==
LOC: RADCTMAIN 13:56
PROVIDERS: ATTEND Internal Medicine
DX: Z12.2 Encounter for screening for malignant neoplasm of respiratory organs (principal); F17.210 Nicotine dependence, cigarettes, uncomplicated; J44.9 Chronic obstructive pulmonary disease, unspecified
CPT/HCPCS: 71271